=== PATIENT | male | born 1990 | race Hispanic/Latino ===

== ENCOUNTER 2018-08-17 16:51 | Observation (INO) | payer SELFPAY ==
[2018-08-17] MEDS ORDERED: ONDANSETRON 4 MG/2 ML VIAL IV PRN (19:46)
[2018-08-17] MEDS ORDERED: ATORVASTATIN 20 MG TAB PO SCH (21:00)
--- NOTE | 2018-08-17 21:00 | RAD REPORT ---
EXAM DESCRIPTION: RAD - Chest Pa And Lat (2 Views) - 08/17/2018 8:55 pm CLINICAL HISTORY: Stroke Chest pain. COMPARISON: No comparisons FINDINGS: The lungs are clear. The heart is normal in size. No displaced fractures. IMPRESSION: No acute or concerning finding suspected.
[2018-08-17] MEDS: NA CHLORIDE 0.9% 1,000 ML IV SCH (22:41)
[2018-08-17] MEDS: ACETAMINOPHEN 500 MG TAB PO PRN (22:41)
[2018-08-17] MEDS: ENOXAPARIN 40 MG/0.4 ML SQ SCH (22:41)
[2018-08-18] MEDS: ACETAMINOPHEN 500 MG TAB PO PRN (05:32)
[2018-08-18 05:50] VITALS: BMI 30.1
[2018-08-18 05:56] LABS: Absolute Lymphocytes (CBC) 1.8 K/uL (0.7-4.9); Absolute Monocytes 0.6 K/uL (0.1-1.3); Basophils % 0.5 % (0-1.3); Eosinophils % 1.4 % (0-4.4); Hematocrit 46.3 % (39.6-49.0); Lymphocytes % 33.2 % (15.3-44.8); MCH 31.3 pg (27.0-35.0); MCV 90.2 fL (80-100); MPV 7.6 fL (7.6-11.3); Monocytes % 10.3 % (3.3-12.3); RBC Red Blood Cell Count 5.13 M/uL (4.33-5.43)
[2018-08-18 06:13] LABS: Albumin 3.8 g/dL (3.4-5.0); Bilirubin Total 0.9 mg/dL (0.2-1.0); Magnesium 2.2 mg/dL (1.8-2.4); Phosphorus 3.3 mg/dL (2.5-4.9); Potassium 3.9 mmol/L (3.5-5.1); Protein, Total 7.3 g/dL (6.4-8.2)
[2018-08-18] MEDS ORDERED: INFLUENZA VACCINE (for 3y+) 0.5 ML DOSE IMVAC ONE (08:00)
[2018-08-18] MEDS: ENOXAPARIN 40 MG/0.4 ML SQ SCH (09:00)
[2018-08-18] MEDS ORDERED: CLOPIDOGREL 75 MG TABLET PO SCH (09:00)
[2018-08-18] MEDS ORDERED: ASPIRIN EC 81 MG TAB PO SCH (09:00)
[2018-08-18] MEDS ORDERED: POTASSIUM CL SA 10 MEQ TAB PO ONE (09:00)
[2018-08-18] MEDS: NA CHLORIDE 0.9% 1,000 ML IV SCH (09:20)
--- NOTE | 2018-08-18 10:39 | RAD REPORT ---
EXAM DESCRIPTION: MRI - MRA Head Wo Cont - 08/18/2018 9:07 am COMPARISON: None. TECHNIQUE: Axial and coronal 3D [id number] image acquisition was performed. 3D rotational images were generated with source and reconstruction images reviewed. Horizontal and vertical axis rotation al views generated using MIP protocol. FINDINGS: The distal vertebral arteries and basilar artery show no suspicious findings. Moderate to moderately advanced atherosclerotic changes involve each posterior cerebral artery distribution. From skullbase to the termination, the internal carotid artery show no significant stenosis. There is some atherosclerotic changes evident in the distal cavernous and supraclinoid portions of each inter nal carotid artery. This does not appear to cause a significant degree of luminal narrowing. Moderate atherosclerotic change involves each A1 segment of the anterior cerebral arteries with more mild atherosclerotic change in each distal anterior cerebral artery. Moderate severity atheroscleroti c changes are present in each middle cerebral artery distribution most notable at the M1 -M2 junction . No aneurysm or vascular malformation. IMPRESSION: Moderate to moderately advanced atherosclerotic change in the intracranial circulation a s detailed. The distal vertebral, basilar and distal internal carotid arteries are without significant disease.
--- NOTE | 2018-08-18 10:41 | RAD REPORT ---
EXAM DESCRIPTION: MRI - Brain W/Wo Cont - 08/18/2018 9:08 am CLINICAL HISTORY: CVA/the headache/right facial numbness COMPARISON: None TECHNIQUE: Axial, sagittal, and coronal magnetic images of the brain were obtained. 20 cc of MultiHa nce administered intravenously. The patient became nauseous after the administration of the contrast. FINDINGS: No abnormal signal is present within the brain. Diffusion-weighted/ADC mapping does not reveal evidence of acute infarction. The ventricles are normal caliber. No abnormal enhancement within the brain is seen. An extra-axial fluid collection is not noted. The sinuses and mastoids are clear. IMPRESSION: Unremarkable brain MRI
--- NOTE | 2018-08-18 10:50 | P.HP ---
Certification for Inpatient Patient admitted to: Observation With expected LOS: <2 Midnights Patient will require the following post-hospital care: None Practitioner: I am a practitioner with admitting privileges, knowledge of patient current condition, hospital course, and medical plan of care. Services: Services provided to patient in accordance with Admission requirements found in Title 42 Section 412.3 of the Code of Federal Regulations Patient History Date of Service: 08/17/18 Reason for admission: Numbness on the right side of the body History of Present Illness: Patient is a 27-year-old gentleman who was seen at [place] emergency room with numbness on the right side of his body. Patient's blood pressure was elevated at that time as well. Patient was transferred to our hospital for further evaluation. When patient arrived to our facility he only had numbness on the right side of his face. His symptoms have pretty much resolved except for the numbness on the right side of his face. He will be admitted to the hospital for further workup including an MRI of the brain. Allergies No Known Allergies Allergy (Verified 08/18/18 02:13) Home Medications: NK [No Home Meds] 08/18/18 - Past Medical/Surgical History Has patient received pneumonia vaccine in the past: No Diabetic: No Past Medical History: Patient denies medical history Past Surgical History: Patient denies surgical history - Family History Father Family History: Reviewed- Non-Contributory - Social History Smoking Status: Never smoker Alcohol use: No CD- Drugs: No Caffeine use: No Place of Residence: Home Review of Systems 10-point ROS is otherwise unremarkable Physical Examination - Vital Signs Temperature: 97.3 F Blood Pressure: 117/61 Pulse: 53 Respirations: 16 Pulse Ox (%): 97 - Physical Exam General: Alert, In no apparent distress, Oriented x3 HEENT: Atraumatic, PERRLA, Mucous membr. moist/pink, EOMI, Sclerae nonicteric Neck: Supple, 2+ carotid pulse no bruit, No LAD, Without JVD or thyroid abnormality Respiratory: Clear to auscultation bilaterally, Normal air movement Cardiovascular: Regular rate/rhythm, Normal S1 S2 Gastrointestinal: Normal bowel sounds, Soft and benign, Non-distended, No tenderness Musculoskeletal: No clubbing, No swelling, No tenderness Integumentary: No rashes Neurological: Normal gait, Normal speech, Normal strength at 5/5 x4 extr, Normal tone, Sensation intact, Cranial nerves 3-12 intact, Normal affect Lymphatics: No axilla or inguinal lymphadenopathy - Studies Laboratory Data (last 24 hrs) 08/18/18 : Sodium Cancelled, Potassium Cancelled, BUN Cancelled, Creatinine Cancelled, Glucose Cancelled 08/18/18 05:30: Sodium 142, Potassium 3.9, BUN 11, Creatinine 1.20, Glucose 91, Phosphorus 3.3, Magnesium 2.2, Total Bilirubin 0.9, AST 16, ALT 31, Alkaline Phosphatase 105, Triglycerides 155 H, Cholesterol 161, HDL Cholesterol 39 L, Cholesterol/HDL Ratio 4.13 08/18/18 05:30: WBC 5.5, Hgb 16.1, Hct 46.3, Plt Count 266 Assessment & Plan - Problems (Diagnosis) (1) Headache Onset Date: 08/18/18 Current Visit: Yes Status: Acute (2) Right facial numbness Onset Date: 08/18/18 Current Visit: Yes Status: Acute - Plan 1. MRI of the brain 2. Echocardiogram and carotid Doppler 3. Anti-platelet therapy and statin therapy 4. Neurology consultation 5. Physical therapy/occupational therapy/speech therapy evaluation 6. DVT prophylaxis - Advance Directives Does patient have a Living Will: No Does patient have a Durable POA for Healthcare: No
--- NOTE | 2018-08-18 11:02 | RAD REPORT ---
EXAM DESCRIPTION: MRI - MRA Neck W/Wo Cont - 08/18/2018 9:08 am CLINICAL HISTORY: Right facial numbness COMPARISON: None. TECHNIQUE: Magnetic resonance angiogram of the neck was performed. 20 cc MultiHance was administered intravenously. 3D MIPS reconstruction performed FINDINGS: The common carotid, internal carotid and external carotid arteries do not demonstrate a si gnificant stenosis. An aneurysm is not seen. The vertebral arteries are codominant without visualization of an abnormality. IMPRESSION: Unremarkable MRA neck
--- NOTE | 2018-08-18 12:26 | EKG ---
Test Date: 2018-08-18 Test Time: 08:45:50 Ophthalmic Medical Technologist: TALA MEASUREMENT RESULTS: Intervals: Rate: 56 [place]: 168 QRSD: 86 QT: 394 QTc: 380 [place]: P: 40 [place]: 168 QRS: 66 T: 39 INTERPRETIVE STATEMENTS: Sinus bradycardia Otherwise normal ECG No previous ECG available for comparison Electronically Signed On 08-18-18 12:25:31 CDT by Dread Campbell
--- NOTE | 2018-08-18 13:38 | ECHO ---
HEIGHT: 5 ft 10 in WEIGHT: 210 lb 0 oz DATE OF STUDY: 08/18/[address]: Herman Estrada MD 2-DIMENSIONAL: YES M.MODE: YES DOPPLER: YES COLOR FLOW: YES TDS: NO PORTABLE: NO DEFINITY: NO BUBBLE STUDY: NO DIAGNOSIS: DIZZINESS CARDIAC HISTORY: CATHERIZATION: NO SURGERY: NO PROSTHETIC VALVE: NO PACEMAKER: NO MEASUREMENTS (cm) DIASTOLIC (NORMALS) SYSTOLIC (NORMALS) IVSd 1.0 (0.6-1.2) LA Diam 3.9 (1.9-4.0) LVEF 61% LVIDd 5.0 (3.5-5.7) LVIDs 3.3 (2.0-3.5) %FS 33% LVPWd 0.9 (0.6-1.2) Ao Diam 2.7 (2.0-3.7) 2 DIMENSIONAL ASSESSMENT: RIGHT ATRIUM: NORMAL LEFT ATRIUM: NORMAL RIGHT VENTRICLE: NORMAL LEFT VENTRICLE: NORMAL TRICUSPID VALVE: NORMAL MITRAL VALVE: NORMAL PULMONIC VALVE: NORMAL AORTIC VALVE: NORMAL PERICARDIAL EFFUSION: NONE AORTIC ROOT: NORMAL LEFT VENTRICULAR WALL MOTION: NORMAL. DOPPLER/COLOR FLOW: NORMAL. COMMENTS: NORMAL 2D ECHO WITH DOPPLER. TECHNOLOGIST: IVAN HEATON
[2018-08-18 18:06] VITALS: BP 119/60; TEMP 98.7
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
== END 2018-08-18 19:15 | disposition home or self-care (01) ==
LOC: 4TH 18:45
PROVIDERS: ADMIT Family Medicine; ATTEND Hospitalist
DX: R51 Headache (principal); R20.0 Anesthesia of skin
CPT/HCPCS: 36415; 70544; 70549; 70553; 71046; 80053; 80061; 83735; 84100; 85025; 93005; 93306; A9577; G0378; J1650; J7030

== ENCOUNTER 2018-08-19 18:34 | Emergency (ER) | payer SELFPAY ==
--- OUTSIDE RECORDS SUMMARY | 2018-08-19 18:41 | XMS REPORT | Continuity of Care Document ---
:1990 Author Organization Interface Problems Problem Status Onset Classification Date Comments Source Date Reported Left facial 05/05/20 05/08/2018 [facility] 18 [facility] Acute headache 05/05/20 05/08/2018 [facility] Acute tension 04/14/20 04/17/2018 [facility] headache 18 [facility] Chest pain, 04/14/20 04/17/2018 [facility] atypical 18 [facility] Chest pain, 01/29/20 04/30/2018 [facility] unspecified 18 [facility] Paresthesia 01/23/20 04/30/2018 [facility] 18 [facility] Nonspecific 01/23/20 04/30/2018 [facility] chest pain 18 [facility] Discharge 05/05/20 05/08/2017 [facility] Diagnosis: 17 Dizziness HYPERTENSION Active 05/05/20 [facility] 17 Discharge 06/25/20 06/28/2016 [facility] Diagnosis: 16 Atypical chest pain CHEST PAIN Active 06/25/20 [facility] 16 Discharge 04/27/20 04/30/2016 [facility] Diagnosis: 16 Myalgia Discharge 04/27/20 04/30/2016 [facility] Diagnosis: Other 16 chest pain CHEST PAIN ON Active 04/26/20 [facility] LEFT 16 LEFT RIB PAIN Active 04/22/20 [facility] 16 Paresthesia of 04/30/2018 [facility] skin [facility] snf use of 04/30/2018 [facility] aspirin [facility] Medications Medication Details Route Status Patient Ordering Order Source Instructions Provider Date BD Normal Saline 25 mL, Route: Inactive 05/05/ [facility] Flush IV, Drug Form: 2017 Hospital INJ, PRN, PRN Line Flush, Start date: 05/05/18 2:18:00 CDT, Duration: 30 day, Stop date: 06/04/18 2:17:00 CDTNotes: (Same as: BD Posiflush) BD Normal Saline 10 mL, Route: Inactive 05/05/ [facility] Flush IV, Drug Form: 2017 [facility] INJ, PRN, PRN Line Flush, Start date: 05/05/18 2:17:00 CDT, Duration: 30 day, Stop date: 06/04/18 2:16:00 CDTNotes: (Same as: BD Posiflush) Ketorolac 30 mg, 1 mL, Inactive [facility] Route: IM, Drug 2018 Hospital form: INJ, ONCE, Dosing Weight 108.182, kg, Priority: STAT, Start date: 05/05/18 2:15:00 CDT, Stop date: 05/05/18 2:15:00 CDTNotes: (Same as:Toradol) IV bolus must be given >15 seconds. Give IM administration slowly and deeply into the muscle. Not for use > 4 days MEDICATION WASTE Product Size: 30 mg Product Wasted: ___ mg Acetaminophen 300 1 cap, PO, Q4H, No Longer [facility] MG / butalbital PRN PRN Active [address] [place] [address] 50 MG / Caffeine Headache, Do 40 MG Oral not exceed 6 Capsule capsules in 24 [Fioricet] hours, # 20 cap, 0 Refill(s) Reglan 10 mg, 1 tab, Inactive [facility] Route: PO, Drug 2018 Hospital form: TAB, ONCE, Dosing Weight 104.545, kg, Priority: STAT, Start date: 04/14/18 21:06:00 CDT, Stop date: 04/14/18 21:06:00 CDTNotes: (Same as: Reglan) Take 30 min before meals Acetaminophen 650 mg, 2 tab, Inactive [facility] Route: PO, Drug 2018 Hospital form: TAB, ONCE, Dosing Weight 104.545, kg, Priority: STAT, Start date: 04/14/18 21:06:00 CDT, Stop date: 04/14/18 21:06:00 CDTNotes: Do not exceed 4 gm/day. (Same as: Tylenol) Sodium Chloride 1,000 mL, 1000 Inactive [facility] 0.9% (Bolus) IV ml/hr, Infuse [address] [place] [address] Over: 1 hr, Route: IV, 1,000, Drug form: INJ, ONCE, Priority: STAT, Dosing Weight 104.545 kg, Start date: 04/14/18 19:24:00 CDT, Stop date: 04/14/18 19:24:00 CDT Omeprazole 20 mg, Route: No Longer [facility] PO, Drug form: Active 2018 [facility] ECCAP, Before Breakfast, Dosing Weight 112.443, kg, Start date: 03/22/18 7:30:00 CDT, Duration: 30 day, Stop date: 04/20/18 7:30:00 CDT Protonix 40 mg, 1 tab, No Longer [facility] Route: PO, Drug Active 2018 [facility] form: ECTAB, Before Breakfast, Start date: 03/22/18 7:30:00 CDT, Duration: 30 day, Stop date: 04/20/18 7:30:00 CDTNotes: (Same as: Protonix) Omeprazole 40 MG 40 mg=1 cap, Active [facility] Enteric Coated PO, Daily, # 30 2018 [facility] Capsule cap, 0 [Prilosec] Refill(s), Pharmacy: [facility] [id number] Pepcid 20 mg, Route: Inactive [facility] IVP, Q12H, 2018 [facility] Dosing Weight 113.636, kg, Start date: 03/21/18 9:00:00 CDT, Duration: 30 day, Stop date: 04/19/18 21:00:00 CDT Saline Flush 0.9% 10 ml, Route: Inactive [facility] IVP, Drug Form: 2018 [facility] INJ, Dosing Weight 113.636, kg, Q12H, Start date: 03/21/18 9:00:00 CDT, Duration: 30 day, Stop date: 04/19/18 21:00:00 CDTNotes: (Same as: BD Posiflush) Aspirin 325 MG 325 mg, 1 tab, Inactive [facility] Enteric Coated Route: PO, Drug 2018 [facility] Tablet form: ECTAB, Daily, Dosing Weight 113.636, kg, Start date: 03/21/18 9:00:00 CDT, Duration: 30 day, Stop date: 04/19/18 9:00:00 CDTNotes: (Do Not Crush) Do not crush or chew. famotidine 20 mg, 1 tab, Inactive CLAYTON Aleman Route: PO, Drug 2018 Hospital form: TAB, Q12H, Start date: 03/21/18 9:00:00 CDT, Duration: 30 day, Stop date: 04/19/18 21:00:00 CDTNotes: (Same as: Pepcid) BD Normal Saline 25 mL, Route: Inactive [facility] Flush IV, Drug Form: 2018 Hospital INJ, PRN, PRN Line Flush, Start date: 03/21/18 8:00:00 CDT, Duration: 30 day, Stop date: 04/20/18 7:59:00 CDTNotes: (Same as: BD Posiflush) normal saline 1,000 mL, Rate: No Longer [facility] 0.9% IV 1,000 mL 125 ml/hr, Active 2018 Hospital Infuse over: 8 hr, Route: IV, Dosing Weight 113.636 kg, Total Volume: 1,000, Start date: 03/20/18 22:22:00 CDT, Duration: 30 day, Stop date: 04/19/18 22:21:00 CDT, 2.37, m2 Ativan 1 mg, 0.5 mL, No Longer [facility] Route: IV, Drug Active 2018 Hospital form: INJ, Q2H, Dosing Weight 113.636, kg, PRN as needed for anxiety, Start date: 03/20/18 22:21:00 CDT, Duration: 30 day, Stop date: 04/19/18 22:20:00 CDTNotes: (Same as: Ativan) Saline Flush 0.9% 10 ml, Route: No Longer [facility] IVP, Drug Form: Active 2018 Hospital INJ, Dosing Weight 113.636, kg, PRN, PRN Line Flush, Start date: 03/20/18 22:20:00 CDT, Duration: 30 day, Stop date: 04/19/18 22:19:00 CDTNotes: (Same as: BD Posiflush) Ondansetron 4 mg, 1 tab, No Longer CLAYTON Aleman Route: PO, Drug Active 2018 Hospital form: TABDIS, Q8H, Dosing Weight 113.636, kg, PRN Nausea & Vomiting, Start date: 03/20/18 22:20:00 CDT, Duration: 30 day, Stop date: 04/19/18 22:19:00 CDTNotes: (Same as: Gene ODT) Nitroglycerin 0.4 mg, 1 tab, No Longer [facility] Route: SL, Drug Active [facility] Hospital form: TAB, Q5Min, Dosing Weight 113.636, kg, PRN Chest Pain, Start date: 03/20/18 22:20:00 CDT, Duration: 3 doses or times, Stop date: Limited # of timesNotes: (Same as:Nitroquick, Nitrostat) "Do Not Crush" Sublingual tablet Aspirin 325 mg, Route: Inactive [facility] PO, Drug form: [facility] Hospital TAB, ONCE, Dosing Weight 113.636, kg, Priority: STAT, Start date: 03/20/18 22:10:00 CDT, Stop date: 03/20/18 22:10:00 CDT Ativan 1 mg, Route: Inactive [facility] IVP, Drug form: [address] [place] [address] INJ, ONCE, Dosing Weight 113.636, kg, Priority: STAT, Start date: 03/20/18 22:10:00 CDT, Stop date: 03/20/18 22:10:00 CDT Ativan 1 mg, 1 tab, Inactive [facility] Route: PO, Drug [facility] Hospital form: TAB, ONCE, Dosing Weight 113.636, kg, Start date: 03/20/18 20:50:00 CDT, Stop date: 03/20/18 20:50:00 CDTNotes: (Same as: Ativan) Sodium Chloride 1,000 mL, 1000 Inactive [facility] 0.9% (Bolus) IV ml/hr, Infuse [facility] Over: 1 hr, Route: IV, 1,000, Drug form: INJ, ONCE, Priority: STAT, Dosing Weight 113.636 kg, Start date: 03/20/18 20:50:00 CDT, Stop date: 03/20/18 20:50:00 CDT Sodium Chloride 1,000 mL, 1000 Inactive [facility] 0.9% (Bolus) IV ml/hr, Infuse [facility] Hospital Over: 1 hr, Route: IV, 1,000, Drug form: INJ, ONCE, Priority: STAT, Dosing Weight 148.636 kg, Start date: 03/20/18 19:13:00 CDT, Stop date: 03/20/18 19:13:00 CDT Saline Flush 0.9% 10 mL, Route: Inactive [facility] IVP, Drug Form: [address] [place] [address] INJ, Dosing Weight 148.636, kg, PRN, PRN Line Flush, Start date: 01/22/18 1:15:00 CDT, Duration: 30 day, Stop date: 02/21/18 1:14:00 CDTNotes: (Same as: BD Posiflush) Aspirin 324 mg, Route: Inactive [facility] PO, ONCE, [address] [place] [address] Dosing Weight 148.636, kg, Priority: STAT, Start date: 01/22/18 1:15:00 CDT, Stop date: 01/22/18 1:15:00 CDT Saline Flush 0.9% 10 mL, Route: No Longer IVP, Drug Form: Active 2016 [facility] INJ, Dosing Weight 100.909, kg, PRN, PRN Line Flush, Start date: 05/05/17 20:21:00 CDT, Duration: 30 day, Stop date: 06/04/17 20:20:00 CDTNotes: (Same as: BD Posiflush) ibuprofen 600 mg 600 mg=1 tab, Active oral tablet PO, Q8H, # 30 2015 [facility] tab, 0 Refill(s) Cyclobenzaprine 10 mg, PO, TID, Active hydrochloride 10 PRN Muscle 2015 [facility] Oral Tablet Spasm, X 7 day, [Flexeril] # 21 tab, 0 Refill(s) tramadol 100 mg=2 tab, Active hydrochloride 50 PO, Q6H, PRN 2015 [facility] Oral Tablet pain, X 5 day, [Ultram] # 30 tab, 0 Refill(s) Dexamethasone 10 mg, Route: Inactive 04/27[facility] IM, ONCE, 2015 [facility] Dosing Weight 100, kg, Priority: STAT, Start date: 04/27/16 9:19:00 CDT, Stop date: 04/27/16 9:19:00 CDT Flexeril 10 mg, 1 tab, Inactive Route: PO, Drug 2015 [facility] form: TAB, ONCE, Dosing Weight 100, kg, Priority: STAT, Start date: 04/27/16 8:56:00 CDT, Stop date: 04/27/16 8:56:00 CDTNotes: (Same As: Flexeril) tramadol 100 mg, 2 tab, Inactive hydrochloride 50 Route: PO, Drug 2015 [facility] MG Oral Tablet form: TAB, [Ultram] ONCE, Dosing Weight 100, kg, Priority: STAT, Start date: 04/27/16 8:56:00 CDT, Stop date: 04/27/16 8:56:00 CDTNotes: Not to exceed 400mg/day. (Same As: Ultram) Ketorolac 60 mg, 2 mL, Inactive Route: IM, Drug 2015 [facility] form: INJ, ONCE, Dosing Weight 100, kg, Priority: STAT, Start date: 04/27/16 8:56:00 CDT, Stop date: 04/27/16 8:56:00 CDTNotes: (Same as:Toradol) IV bolus must be given >15 seconds. Give IM administration slowly and deeply into the muscle. Not for use > 4 days MEDICATION WASTE Product Size: 60 mg Product Wasted: ___ mg Dexamethasone 10 mg, 1 mL, Inactive Route: IM, Drug 2015 [facility] form: INJ, ONCE, Dosing Weight 100, kg, Priority: STAT, Start date: 04/27/16 8:56:00 CDT, Stop date: 04/27/16 8:56:00 CDTNotes: MEDICATION WASTE Product Size: 10 mg Product Wasted: ___ mg naproxen 500 mg 500 mg=1 tab, Active oral tablet PO, BID, PRN 2016 [facility] Pain, # 30 tab, 0 Refill(s) Ketorolac 60 mg, 2 mL, Inactive Route: IM, Drug 2015 [facility] form: INJ, ONCE, Dosing Weight 101.818, kg, Priority: STAT, Start date: 04/22/16 17:24:00 CDT, Stop date: 04/22/16 17:24:00 CDTNotes: (Same as:Toradol) IV bolus must be given >15 seconds. Give IM administration slowly and deeply into the muscle. Not for use > 4 days MEDICATION WASTE Product Size: 60 mg Product Wasted: ___ mg Allergies, Adverse Reactions, Alerts Substance Category Reaction Severity Reaction Status Date Comments Source type Reported Immunizations Immunization Date Given Site Status Last Updated Comments Source Results Order Name Results Value Reference Date Interpretation Comments Source Range Brain wo Brain wo Clinical Indication: - DIZZINESS. 06/14 - [facility] contrast contrast CT /2017 - Hospital CT Comparison: 05/23/2018. Read by: Alli Gray MD Dictated Date/time: 06/14/18 18:32 Electronically Signed by: Alli Gray MD 06/14/18 18:34 FINAL REPORT TECHNIQUE: CT images were obtained from the foramen magnum to the vertex without the use of intravenous contrast on a multidetector CT. CT imaging was performed with exposure control parameters to reduc e radiation dose. Coronal and sagittal reconstructions were obtained. CT radiation dose DLP: 1284 mGy-cm FINDINGS: There is no specific evidence of intracranial hemorrhage, acute infarction or intracranial mass lesion. The ventricles are within normal limits in size and configuration without evidence of hydrocephalus. The visualized paranasal sinuses and mastoid air cells are clear. The bones and extracranial soft tissues are unremarkable. If there is further concern for intracranial pathology or acute stroke, MRI of the brain may be performed for complete assessment. IMPRESSION: No specific evidence of intracranial hemorrhage, acute infarction, intracranial mass lesion or hydrocephalus. SL: FELICIANO Brain wo Brain wo Patient Name: KAIT RAMOS 05/23 - [facility] contrast contrast CT /2017 - Hospital CT : 1990; Age: 27 years y/o Male MR: [id number] Read by: Jona Millan MD Dictated Date/time: 05/23/18 22:25 Electronically Signed by: Jona Millan MD 05/23/18 22:30 FINAL REPORT Study: Brain wo contrast CT 05/23/2018 9:38 PM CDT Clinical Indication: Vertigo - Severe headache and dizziness; Comparison: 05/05/2018 TECHNIQUE: CT images were obtained from the foramen magnum to the vertex without the use of intravenous contrast on a multidetector CT. Coronal and sagittal reconstructions were obtained. DLP: 1298 mGy-cm. FINDINGS: BRAIN PARENCHYMA: There are normal rojo-white interfaces. No evidence for subarachnoid, intraparenchymal or intraventricular hemorrhage. No significant extra-axial fluid collection, mass effect or shif t. No evidence for an acute infarction. No mass lesions identified about the brain. VENTRICLES: Ventricles and sulci are within normal limits for the patient' s age. ORBITS, MASTOIDS AND PARANASAL SINUSES: The visualized orbits and paranasal sinuses are unremarkable. The mastoid air cells are clear. SKULL: There are no osseous abnormalities. If there is further concern for intracranial pathology or acute stroke, MRI of the brain may be performed for complete assessment. IMPRESSION: Unremarkable noncontrast head CT. SL: TRINIDAD-PC Chest Chest 1view Clinical Indication: Dizziness -near syncope workup; [facility] 1view DX DX /2018 - Hospital Comparison: 03/20/2018 Read by: Alfreda Coyne MD Dictated Date/time: 05/23/18 22:12 Electronically Signed by: Alfreda Coyne MD 05/23/18 22:13 FINAL REPORT Technique: X-ray chest frontal projection FINDINGS: There is no consolidation, pleural effusion or pneumothorax. The heart is normal in size. The mediastinum and selina are unremarkable. The visualized bones and soft tissues are within normal limits. IMPRESSION: No chest radiographic evidence of acute cardiopulmonary disease. SL: TOÑA Brain wo Brain wo I have reviewed this examination and concur with the interpretation. 05/[address] /2018 - Hospital CT Clinical Indication: Headache, bilateral hand numbness Comparison: None Read by: Regino Newman MD Dictated Date/time: 05/05/18 02:04 Electronically Signed by: Regino Newman MD 05/05/18 02:04 FINAL REPORT TECHNIQUE: CT images were obtained from the foramen magnum to the vertex without the use of intravenous contrast on a multidetector CT. Coronal and sagittal reconstructions were obtained. - - CT radiation dose DLP: 1247 mGy-cm Read by: Xiomy Boateng MD Dictated Date/time: 05/05/18 02:02 FINDINGS: Electronically Signed by: Xiomy Boateng MD 05/05/18 02:03 FINAL REPORT BRAIN PARENCHYMA: Normal rojo-white interfaces, sulci and gyri. No focal mass lesions on this noncontrast head CT. No mass effect, midline shift or edema. No intra- axial or extra-axial fluid collections, intraventricular or intraparenchymal hemorrhage. Pineal, brainstem, cerebellum and skull base regions appear unremarkable. No abnormal findings in the sella. VENTRICLES: Lateral ventricles, third and fourth ventricles appear unremarkable. Basilar cisterns are normal. ORBITS, MASTOIDS AND PARANASAL SINUSES: -Visualized orbits/retro-orbital spaces are within normal limits. - The paranasal sinuses are unremarkable. The mastoid air cells are clear. SKULL: No acute osseous abnormalities. No focal or asymmetric scalp swelling. If there is further concern for intracranial pathology or acute stroke, MRI of the brain may be performed for complete assessment. IMPRESSION: 1. No acute intracranial abnormality. No mass, hemorrhage, or subacute stroke. SL: [id number] URINE AND UA <=1.0 0.1 - 1.0 04/15 [facility] STOOL Urobilinogen mg/dL /2017 [facility] URINE AND UA Turbidity Clear Clear 04/15 [facility] /2017 [facility] (04/14/18 8:38 PM) URINE AND UA Color Light Yellow Yellow 04/15 [facility] *NA* (04/14/18 8:38 PM) URINE AND UA pH 5.0 5.0 - 8.0 04/15 [facility] [address] [place] [address] URINE AND UA Glucose Negative Negative 04/15 [facility] STOOL mg/dL mg/dL /2017 [facility] URINE AND UA Ketones Negative Negative 04/15 [facility] STOOL mg/dL mg/dL /[address] [place] [address] URINE AND UA Protein Negative Negative 04/15 [facility] STOOL mg/dL mg/dL /2017 [facility] URINE AND UA Spec Grav 1.017 <=1.030 04/15 [facility] [address] [place] [address] URINE AND UA Blood Negative Negative 04/15 [facility] /[address] [place] [address] (04/14/18 8:38 PM) URINE AND UA Bili Negative Negative 04/15 [facility] /[address] [place] [address] *NA* (04/14/18 8:38 PM) URINE AND UA Nitrite Negative Negative 04/15 [facility] /2017 [facility] (04/14/18 8:38 PM) URINE AND UA Mucus Few /LPF None Seen 04/15 [facility] STOOL /LPF /2017 Hospital URINE AND UA Leuk Est Negative Negative 04/15 [facility] STOOL [facility] (04/14/18 8:38 PM) URINE AND UA WBC 1 /HPF 0 - 5 04/15 [facility] STOOL [facility] URINE AND UA Sq Epi None Seen 04/15 [facility] STOOL [facility] CHEM PANEL Procalcitoni <0.05 0.00 - 04/15 [facility] n Lvl ng/mL 0.10 [facility] CHEM PANEL Lactic Acid 1.1 mMol/L 0.5 - 2.2 04/15 [facility] Lvl /2017 [facility] CARDIAC Troponin-I null 0.00 - 04/15 [facility] ENZYMES 0.40 [facility] CARDIAC CK MB null 0.5 - 3.6 04/15 [facility] ENZYMES [facility] CARDIAC Total CK 132 unit/L 12 - 191 04/15 [facility] ENZYMES [facility] CARDIAC CK MB Index null 0.0 - 2.5 04/15 [facility] ENZYMES [facility] CHEM PANEL eGFR 80 04/15 Result Comment: The eGFR is calculated using the CKD-EPI formula. In most young, healthy individuals the eGFR will be >90 mL/ min/1.73m2. The eGFR declines with age. An eGFR of 60-89 may be normal in mL/min/1.7 some populations, particularly the elderly, for whom the CKD-EPI formula has not been extensively validated. Use of the eGFR is not recommended in the following populations: Hospital 3m2 Individuals with unstable creatinine concentrations, including patients and those with serious co-morbid conditions. Patients with extremes in muscle mass or diet. The data above are obtained from the National Kidney Disease Education Program (NKDEP) which additionally recommends that when the eGFR is used in patients with extremes of body mass index for purposes of drug dosing, the eGFR should be multiplied by the estimated BMI. CHEM PANEL A/G Ratio 0.9 0.7 - 1.6 04/15 Hospital CHEM PANEL Globulin 4.2 g/dL 2.7 - 4.2 04/15 [facility] CHEM PANEL AGAP 12.6 meq/L 10.0 - 04/15 [facility] 20.0 [facility] CHEM PANEL B/C Ratio 11 6 - 25 04/15 Hospital CHEM PANEL Total 8.1 g/dL 6.4 - 8.4 06 Hospital CHEM PANEL Chloride Lvl 107 meq/L 95 - 109 04/15 Hospital CHEM PANEL Potassium 4.6 meq/L 3.5 - 5.1 04/15 [facility] L[facility] CHEM PANEL Alk Phos 110 unit/L 39 - 136 06 Hospital CHEM PANEL Bili Total 0.6 mg/dL 0.2 - 1.3 04/15 Hospital CHEM PANEL AST 34 unit/L 0 - 37 06 Hospital CHEM PANEL ALT 44 unit/L 0 - 65 04/15 Hospital CHEM PANEL Albumin Lvl 3.9 g/dL 3.5 - 5.0 04/15 Hospital CHEM PANEL Calcium Lvl 8.9 mg/dL 8.5 - 10.5 04/15 Hospital CHEM PANEL CO2 24 meq/L 24 - 32 04/15 Hospital CHEM PANEL Sodium Lvl 139 meq/L 135 - 145 06 Hospital CHEM PANEL Creatinine 1.22 mg/dL 0.50 - 04/15 [facility] Lvl 1.40 [facility] CHEM PANEL BUN 14 mg/dL 7 - 22 04/15 Hospital CHEM PANEL Glucose Lvl 98 mg/dL 70 - 99 04/15 Hospital CHEM PANEL Lipase Lvl 118 unit/L 73 - 393 04/15 Hospital HEMATOLOGY MPV 7.5 fL 7.4 - 10.4 04/15 Hospital HEMATOLOGY Hgb 15.9 g/dL 14.0 - 06 [facility] 18.0 [facility] HEMATOLOGY RDW 12.5 % 11.5 - 0608 [facility] 14.5 [facility] HEMATOLOGY Platelet 264 K/CMM 133 - 450 06 Hospital HEMATOLOGY MCH 30.8 pg 27.0 - 04/15 [facility] 31.0 [facility] HEMATOLOGY MCHC 35.4 g/dL 32.0 - 08 [facility] 36.0 [facility] HEMATOLOGY MCV 87.1 fL 80.0 - 04/15 [facility] 94.0 /2017 Hospital HEMATOLOGY Hct 45.0 % 42.0 - 04/15 [facility] 54.0 /2017 Hospital HEMATOLOGY RBC 5.17 M/CMM 4.70 - 04/15 [facility] 6.10 [facility] HEMATOLOGY WBC 7.6 K/CMM 3.7 - 10.4 / [facility] /2018 [facility] HEMATOLOGY Monocytes 8.4 % 2.0 - 12.0 /08 [facility] /2018 [facility] HEMATOLOGY Eosinophils 1.4 % 0.0 - 4.0 /08 [facility] /2018 [facility] HEMATOLOGY Lymphocytes 22.4 % 20.0 - 06/08 [facility] 40.0 /2017 [facility] HEMATOLOGY Basophils 0.7 % 0.0 - 1.0 / [facility] /2018 [facility] HEMATOLOGY Segs-Bands # 5.1 K/CMM 1.5 - 8.1 04/15 [facility] /2017 [facility] HEMATOLOGY Segs 67.1 % 45.0 - 04/15 [facility] 75.0 [facility] HEMATOLOGY Lymphocytes 1.7 K/CMM 1.0 - 5.5 /08 [facility] # /2018 [facility] HEMATOLOGY Monocytes # 0.6 K/CMM 0.0 - 0.8 /08 [facility] /2017 [facility] HEMATOLOGY Eosinophils 0.1 K/CMM 0.0 - 0.5 /08 [facility] # /2018 [facility] HEMATOLOGY Basophils # 0.1 K/CMM 0.0 - 0.2 /08 [facility] /2018 [facility] Chest Chest Procedure: CT Pulmonary Angiogram. 04/14 - [facility] Pulmonary Pulmonary /2017 - Hospital Embolism Embolism CTA CTA Clinical Indication: Chest pain with shortness of breath for 5 days. Read by: Yvon Gibbs MD Dictated Date/time: 04/14/18 20:49 Electronically Signed by: Yvon Gibbs MD 04/14/18 20:53 FINAL REPORT Comparison: Chest radiograph 03/20/2018. TECHNIQUE: Sequential trans-axial images were obtained thru the chest and upper abdomen after administration of 100 cc Omnipaque 300 iodinated contrast. Coronal and sagittal MIP reconstructions were obtained (CT pulmonary angiogram) . Total CT radiation dose: WKO=781 mGy-cm FINDINGS: LUNG PARENCHYMA AND PLEURA: There are no lung nodules. No focal consolidation or significant interstitial lung disease is observed and no pleural effusion is identified. AIRWAY: The central airway is normal. . MEDIASTINUM: No significant mediastinal lymphadenopathy. HEART: There is no evidence of RV strain. The cardiac chambers are otherwise unremarkable. There is no pericardial effusion. VASCULAR STRUCTURES: There are no segmental pulmonary emboli noted. The main, right and left pulmonary arteries are normal. The great vessels are unremarkable. The thoracic aorta is is free of aneurysm or dissection. The superior vena cava is unremarkable. VISUALIZED UPPER ABDOMEN: The visualized upper abdomen is within normal limits. OSSEOUS STRUCTURES: There are no definite significant osseous abnormalities seen. IMPRESSION: 1. No evidence of pulmonary emboli. SL:[id number] Abdomen AP Abdomen AP Abdomen one view: 03/21 - [facility] DX - Hospital HISTORY: Abdominal distention. Read by: Sea Juarez MD Dictated Date/time: 03/21/18 10:29 Electronically Signed by: Sea Juarez MD 03/21/18 10:29 FINAL REPORT FINDINGS: Bowel gas pattern is unremarkable. There is no bowel obstruction. Evaluation of soft tissues and bony structures unremarkable. IMPRESSION: Nonspecific abdomen SL: [id number] CARDIAC Troponin-I null 0.00 - 03/21 [facility] ENZYMES 0.40 [facility] LIPIDS Chol 154 mg/dL <=199 03/21 [facility] mg/dL /2017 Hospital LIPIDS VLDL 37 03/21 [facility] /2017 [facility] LIPIDS LDL 84 mg/dL <=99 mg/dL 03/21 [facility] (Calculated) Hospital LIPIDS HDL 33 mg/dL >=61 mg/dL 03/21 [facility] /2017 Hospital LIPIDS CHD Risk 4.67 4.00 - 03/21 [facility] 7.30 [facility] LIPIDS Trig 183 mg/dL <=149 03/21 [facility] mg/dL /2018 Hospital CARDIAC Troponin-I null 0.00 - 03/21 [facility] ENZYMES 0.40 [facility] CARDIAC BNP null <=100 03/21 [facility] ENZYMES pg/mL /2017 Hospital CARDIAC Troponin-I null 0.00 - 03/21 [facility] ENZYMES 0.40 2018 Hospital CARDIAC Total CK 88 unit/L 12 - 191 03/21 [facility] ENZYMES /2017 Hospital CARDIAC CK MB null 0.5 - 3.6 03/21 [facility] ENZYMES /2017 Hospital CARDIAC CK MB Index null 0.0 - 2.5 03/21 Hospital CHEM PANEL eGFR 90 03/21 Result Comment: The eGFR is calculated using the CKD-EPI formula. In most young, healthy individuals the eGFR will be >90 mL/ min/1.73m2. The eGFR declines with age. An eGFR of 60-89 may be normal in mL/min/1.7 some populations, particularly the elderly, for whom the CKD-EPI formula has not been extensively validated. Use of the eGFR is not recommended in the following populations: [address] Individuals with unstable creatinine concentrations, including patients and those with serious co-morbid conditions. Patients with extremes in muscle mass or diet. The data above are obtained from the National Kidney Disease Education Program (NKDEP) which additionally recommends that when the eGFR is used in patients with extremes of body mass index for purposes of drug dosing, the eGFR should be multiplied by the estimated BMI. CHEM PANEL A/G Ratio 1.0 0.7 - 1.6 03/21 [facility] CHEM PANEL Globulin 3.6 g/dL 2.7 - 4.2 03/21 [facility] CHEM PANEL B/C Ratio 11 6 - 25 03/21 [facility] CHEM PANEL AGAP 10.7 meq/L 10.0 - 03/21 20.0 Hospital CHEM PANEL Bili Total 0.3 mg/dL 0.2 - 1.3 03/21 [facility] CHEM PANEL Alk Phos 112 unit/L 39 - 136 03/21 [facility] CHEM PANEL Calcium Lvl 8.1 mg/dL 8.5 - 10.5 03/21 [facility] CHEM PANEL Total 7.3 g/dL 6.4 - 8.4 03/21 [facility] CHEM PANEL AST 20 unit/L 0 - 37 03/21 [facility] CHEM PANEL ALT 36 unit/L 0 - 65 03/21 [facility] CHEM PANEL Albumin Lvl 3.7 g/dL 3.5 - 5.0 03/21 [facility] CHEM PANEL Creatinine 1.10 mg/dL 0.50 - 03/21 [facility] 1[facility]40 [facility] CHEM PANEL Chloride Lvl 112 meq/L 95 - 109 03/21 [facility] CHEM PANEL Potassium 3.7 meq/L 3.5 - 5.1 03/21 [facility] CHEM PANEL Sodium Lvl 142 meq/L 135 - 145 03/21 [facility] CHEM PANEL CO2 23 meq/L 24 - 32 03/21 [facility] CHEM PANEL BUN 12 mg/dL 7 - 22 03/21 [facility] CHEM PANEL Glucose Lvl 95 mg/dL 70 - 99 03/21 [facility] CHEM PANEL Lipase Lvl 100 unit/L 73 - 393 03/21 [facility] DRUG U Cocaine Positive Negative 03/21 [facility] *ABN* (03/20/18 7:40 PM) DRUG U Benzodia Negative Negative 03/21 [facility] *NA* (03/20/18 7:40 PM) DRUG U Amph Scr Negative Negative 03/21 [facility] *NA* (03/20/18 7:40 PM) DRUG U Opiate Scr Negative Negative 03/21 [facility] *NA* (03/20/18 7:40 PM) DRUG U Cannab Scr Positive Negative 03/21 [facility] *ABN* (03/20/18 7:40 PM) DRUG U Flora Scr Negative Negative 03/21 [facility] *NA* (03/20/18 7:40 PM) DRUG U Phencyc Negative Negative 03/21 [facility]NA* (03/20/18 7:40 PM) DRUG UDS Note See Note 03/21 [facility] (03/20/18 7:40 PM) HEMATOLOGY D-Dimer null 03/21 [facility] HEMATOLOGY PTT 31.6 s 22.9 - 03/21 [facility] 35[facility]8 [facility] HEMATOLOGY WBC 6.1 K/CMM 3.7 - 10.4 03/21 [facility] HEMATOLOGY MCHC 33.9 g/dL 32.0 - 03/21 [facility] 36[facility]0 [facility] HEMATOLOGY RDW 12.9 % 11.5 - 03/21 [facility]. [facility] HEMATOLOGY MPV 7.2 fL 7.4 - 10.4 03/21 [facility] HEMATOLOGY Platelet 243 K/CMM 133 - 450 03/21 [facility] /2017 [facility] HEMATOLOGY Hgb 14.3 g/dL 14.0 - 03/21 [facility] 18.0 [facility] HEMATOLOGY RBC 4.78 M/CMM 4.70 - 03/21 [facility] 6.10 [facility] HEMATOLOGY MCH 30.0 pg 27.0 - 03/21 [facility] 31.0 [facility] HEMATOLOGY MCV 88.5 fL 80.0 - 03/21 [facility] 94.0 /2017 [facility] HEMATOLOGY Hct 42.3 % 42.0 - 03/21 [facility] 54.0 [facility] HEMATOLOGY INR 1.08 0.85 - 03/21 [facility] 1.17 [facility] HEMATOLOGY PT 14.0 s 12.0 - 03/21 [facility] 14.7 [facility] HEMATOLOGY Segs 57.9 % 45.0 - 03/21 [facility] 75.0 [facility] HEMATOLOGY Lymphocytes 31.3 % 20.0 - 03/21 [facility] 40.0 [facility] HEMATOLOGY Monocytes # 0.6 K/CMM 0.0 - 0.8 03/21 [facility] HEMATOLOGY Segs-Bands # 3.6 K/CMM 1.5 - 8.1 03/21 [facility] HEMATOLOGY Lymphocytes 1.9 K/CMM 1.0 - 5.5 03/21 [facility] # /2017 [facility] HEMATOLOGY Eosinophils 1.2 % 0.0 - 4.0 03/21 [facility] HEMATOLOGY Basophils 0.4 % 0.0 - 1.0 03/21 [facility] HEMATOLOGY Monocytes 9.2 % 2.0 - 12.0 03/21 [facility] HEMATOLOGY Eosinophils 0.1 K/CMM 0.0 - 0.5 03/21 [facility] # /2017 [facility] URINE AND UA Sq Epi None Seen 03/21 [facility] URINE AND UA <=1.0 0.1 - 1.0 03/21 [facility] Urobilinogen mg/dL /2017 Hospital URINE AND UA RBC null 0 - 2 03/21 [facility] /2017 [facility] URINE AND UA Mucus Few /LPF None Seen 03/21 [facility] /LPF /2017 [facility] URINE AND UA Bili Negative Negative 03/21 [facility] STO[facility] *NA* (03/20/18 7:40 PM) URINE AND UA Blood Negative Negative 03/21 [facility] /2017 [facility] (03/20/18 7:40 PM) URINE AND UA Nitrite Negative Negative 03/21 [facility] /2017 [facility] (03/20/18 7:40 PM) URINE AND UA Leuk Est Negative Negative 03/21 [facility] STOOL [facility] (03/20/18 7:40 PM) URINE AND UA WBC 1 /HPF 0 - 5 03/21 [facility] /2017 [facility] URINE AND UA Color Light Yellow Yellow 03/21 [facility] STOOL [facility] *NA* (03/20/18 7:40 PM) URINE AND UA Turbidity Clear Clear 03/21 [facility] (03/20/18 7:40 PM) URINE AND UA Glucose Negative Negative 03/21 [facility] mg/dL mg/dL [facility] URINE AND UA Ketones Trace Negative 03/21 [facility] STOOL mg/dL mg/dL [facility] URINE AND UA Spec Grav 1.020 <=1.030 03/21 [facility] STO[facility] URINE AND UA pH 5.0 5.0 - 8.0 03/21 [facility] URINE AND UA Protein Negative Negative 03/21 [facility] mg/dL mg/dL [facility] Chest 2 Chest 2 PROCEDURE: CHEST TWO VIEW 03/20 - [facility] views DX views - Hospital INDICATION: Chest pain Read by: Sea Juarez MD Dictated Date/time: 03/20/18 19:25 Electronically Signed by: Sea Juarez MD 03/20/18 19:26 FINAL REPORT COMPARISON: 05/05/2017 FINDINGS: Both lungs are clear. No infiltrate or pleural fluid. The heart and mediastinal contours are unremarkable. No acute bony pathology. IMPRESSION: No acute abnormality SL: EG-M CARDIAC Total CK 79 unit/L 12 - 191 01/22 [facility] CARDIAC Troponin-I null 0.00 - 01/22 [facility] 0.40 /2017 [facility] CARDIAC CK MB Index null 0.0 - 2.5 01/22 [facility] CARDIAC CK MB null 0.5 - 3.6 01/22 [facility] DRUG U Amph Scr Negative Negative 01/22 [facility] *NA* (01/22/18 6:09 AM) DRUG U Opiate Scr Negative Negative 01/22 [facility] *NA* (01/22/18 6:09 AM) DRUG U Cocaine Negative Negative 01/22 [facility] *NA* (01/22/18 6:09 AM) DRUG U Flora Scr Negative Negative 01/22 [facility]NA[facility] (01/22/18 6:09 AM) DRUG U Benzodia Negative Negative 01/22 [facility]NA* (01/22/18 6:09 AM) DRUG U Cannab Scr Negative Negative 01/22 [facility]NA* (01/22/18 6:09 AM) DRUG U Phencyc Negative Negative 01/22 [facility]NA* (01/22/18 6:09 AM) DRUG UDS Note See Note 01/22 [facility] (01/22/18 6:09 AM) CARDIAC Total CK 95 unit/L 12 - 191 01/22 [facility] CARDIAC Troponin-I null 0.00 - 01/22 [facility] 0.40 [facility] CARDIAC CK MB null 0.5 - 3.6 01/22 [facility] CARDIAC CK MB Index null 0.0 - 2.5 01/22 [facility] CHEM PANEL Lipase Lvl 118 unit/L 73 - 393 01/22 [facility] ELECTROLYT Chloride Lvl 105 meq/L 95 - 109 01/22 [facility] ELECTROLYT Potassium 3.9 meq/L 3.5 - 5.1 01/22 [facility] ELECTROLYT Calcium Lvl 9.3 mg/dL 8.5 - 10.5 01/22 [facility] ELECTROLYT Total 7.8 g/dL 6.4 - 8.4 01/22 [facility] ELECTROLYT CO2 28 meq/L 24 - 32 01/22 [facility] ELECTROLYT eGFR 103 01/22 Result Comment: The eGFR is calculated using the CKD-EPI formula. In most young, healthy individuals the eGFR will be >90 mL/ min/1.73m2. The eGFR declines with age. An eGFR of 60-89 may be normal in mL/min/1. some populations, particularly the elderly, for whom the CKD-EPI formula has not been extensively validated. Use of the eGFR is not recommended in the following populations: [facility] 3m2 Individuals with unstable creatinine concentrations, including patients and those with serious co-morbid conditions. Patients with extremes in muscle mass or diet. The data above are obtained from the National Kidney Disease Education Program (NKDEP) which additionally recommends that when the eGFR is used in patients with extremes of body mass index for purposes of drug dosing, the eGFR should be multiplied by the estimated BMI. ELECTROLYT Globulin 3.8 g/dL 2.7 - 4.2 01/22 Hospital ELECTROLYT A/G Ratio 1.1 0.7 - 1.6 01/22 Hospital ELECTROLYT Alk Phos 113 unit/L 39 - 136 01/22 Hospital ELECTROLYT AGAP 9.9 meq/L 10.0 - 01/22 20.0 Hospital ELECTROLYT Bili Total 0.5 mg/dL 0.2 - 1.3 01/22 Hospital ELECTROLYT B/C Ratio 15 6 - 25 01/22 Hospital ELECTROLYT Albumin Lvl 4.0 g/dL 3.5 - 5.0 01/22 Hospital ELECTROLYT ALT 40 unit/L 0 - 65 01/22 Hospital ELECTROLYT AST 22 unit/L 0 - 37 01/22 [facility] ELECTROLYT Glucose Lvl 96 mg/dL 70 - 99 01/22 Hospital ELECTROLYT Creatinine 0.98 mg/dL 0.50 - 01/22 Lvl 1.40 Hospital ELECTROLYT Sodium Lvl 139 meq/L 135 - 145 01/22 Hospital ELECTROLYT BUN 15 mg/dL 7 - 22 01/22 Hospital HEMATOLOGY D-Dimer null 01/22 Hospital HEMATOLOGY Platelet 242 K/CMM 133 - 450 01/22 Hospital HEMATOLOGY RDW 12.6 % 11.5 - 01/22 [facility] 14[facility]5 [facility] HEMATOLOGY MCHC 34.1 g/dL 32.0 - 01/22 [facility] 36.0 /2017 [facility] HEMATOLOGY MCH 30.0 pg 27.0 - 01/22 [facility] 31[facility]0 [facility] HEMATOLOGY MPV 7.7 fL 7.4 - 10.4 01/22 [facility] HEMATOLOGY Hct 47.0 % 42.0 - 01/22 [facility] 54[facility]0 [facility] HEMATOLOGY MCV 88.1 fL 80.0 - 01/22 [facility] 94[facility]0 [facility] HEMATOLOGY RBC 5.34 M/CMM 4.70 - 01/22 [facility] 6.10 [facility] HEMATOLOGY Hgb 16.0 g/dL 14.0 - 01/22 [facility] 18[facility]0 [facility] HEMATOLOGY WBC 6.2 K/CMM 3.7 - 10.4 01/22 [facility] HEMATOLOGY Lymphocytes 28.2 % 20.0 - 01/22 [facility] 40[facility]0 [facility] HEMATOLOGY Segs 61.5 % 45.0 - 01/22 [facility] 75.0 [facility] HEMATOLOGY Monocytes 8.5 % 2.0 - 12.0 01/22 [facility] HEMATOLOGY Eosinophils 0.1 K/CMM 0.0 - 0.5 01/22 [facility] # /2017 [facility] HEMATOLOGY Basophils 0.6 % 0.0 - 1.0 01/22 [facility] HEMATOLOGY Monocytes # 0.5 K/CMM 0.0 - 0.8 01/22 [facility] HEMATOLOGY Segs-Bands # 3.8 K/CMM 1.5 - 8.1 01/22 [facility] HEMATOLOGY Lymphocytes 1.7 K/CMM 1.0 - 5.5 01/22 [facility] # /2017 [facility] HEMATOLOGY Eosinophils 1.2 % 0.0 - 4.0 01/22 [facility] Brain wo Brain wo CT HEAD WITHOUT CONTRAST 01/22 - [facility] contrast contrast CT /2017 - Hospital CT Clinical Indication: - left dided numbness without weakness. Read by: Holger Lynch MD Dictated Date/time: 01/22/18 05:12 Comparison: 04/27/2017. Electronically Signed by: Holger Lynch MD 01/22/18 05:17 FINAL REPORT TECHNIQUE: CT images were obtained from the foramen magnum to the vertex without the use of intravenous contrast on a multidetector CT. CT imaging was performed with exposure control parameters to reduc e radiation dose. Coronal and sagittal reconstructions were obtained. CT radiation dose DLP: 1302 mGy-cm FINDINGS: There is no hemorrhage, extra-axial fluid collection, overt mass, midline shift or hydrocephalus. The visualized paranasal sinuses and mastoid air cells are clear. The calvarium and skull base are intact. If clinical concern persists for acute pathology further evaluation with MRI brain can be obtained if clinically warranted. IMPRESSION: No CT evidence of acute intracranial abnormality. SL: [id number] Chest Chest 1view Clinical Indication: Chest pain radiating to the left side. 01/22 - [facility] DX - Hospital Comparison: None Read by: Xiomy Boateng MD Dictated Date/time: 01/22/18 02:03 FINDINGS: Electronically Signed by: Xiomy Boateng MD 01/22/18 02:03 FINAL REPORT AP view of the chest submitted for interpretation. Lungs are clear. Heart size is normal. Central pulmonary vasculature appears normal. No effusion. No pneumothorax. No radiographically apparent acute osseous abnormality. IMPRESSION: 1. No radiographically apparent acute cardiopulmonary process. SL: [id number] URINE AND UA <=1.0 0.1 - 1.0 05/06 STOOL Urobilinogen mg/dL [facility] URINE AND UA WBC 2 /HPF 0 - 5 05/06 [facility] URINE AND UA RBC 1 /HPF 0 - 2 05/06 [facility] URINE AND UA Color Ltyellow 05/06 [facility] URINE AND UA Protein Negative Negative 05/06 [facility] mg/dL mg/dL [facility] URINE AND UA Bili Negative Negative 05/06 [facility] *NA* (05/05/17 10:30 PM) URINE AND UA Glucose Negative Negative 05/06 [facility] mg/dL mg/dL [facility] URINE AND UA pH 7.0 5.0 - 8.0 05/06 [facility] URINE AND UA Ketones Negative Negative 05/06 [facility] mg/dL mg/dL [facility] URINE AND UA Sq Epi Occasional Few /LPF 05/06 STOOL /LPF [facility] URINE AND UA Leuk Est Negative Negative 05/06 [facility] (05/05/17 10:30 PM) URINE AND UA Nitrite Negative Negative 05/06 [facility] (05/05/17 10:30 PM) URINE AND UA Blood Negative Negative 05/06 [facility] (05/05/17 10:30 PM) URINE AND UA Spec Grav 1.024 <=1.030 05/06 [facility] URINE AND UA Turbidity Clear Clear 05/06 [facility] (05/05/17 10:30 PM) CARDIAC CK MB Index null 0.0 - 2.5 05/06 [facility] CARDIAC CK MB null 0.5 - 3.6 05/06 [facility] CARDIAC Total CK 97 unit/L 12 - 191 05/06 [facility] CARDIAC Troponin-I null 0.00 - 05/06 [facility] 0. [facility] ELECTROLYT CO2 23 meq/L 24 - 32 05/06 [facility] ELECTROLYT Sodium Lvl 138 meq/L 135 - 145 05/06 [facility] ELECTROLYT Potassium 4.1 meq/L 3.5 - 5.1 05/06 ES Lvl [facility] ELECTROLYT Chloride Lvl 107 meq/L 95 - 109 05/06 [facility] ELECTROLYT eGFR 91 05/06 Result Comment: The eGFR is calculated using the CKD-EPI formula. In most young, healthy individuals the eGFR will be >90 mL/ min/1.73m2. The eGFR declines with age. An eGFR of 60-89 may be normal in mL/min/1.7 /2017 some populations, particularly the elderly, for whom the CKD-EPI formula has not been extensively validated. Use of the eGFR is not recommended in the following populations: [facility] 3m2 Individuals with unstable creatinine concentrations, including patients and those with serious co-morbid conditions. Patients with extremes in muscle mass or diet. The data above are obtained from the National Kidney Disease Education Program (NKDEP) which additionally recommends that when the eGFR is used in patients with extremes of body mass index for purposes of drug dosing, the eGFR should be multiplied by the estimated BMI. ELECTROLYT Bili Total 0.5 mg/dL 0.2 - 1.3 05/06 [facility] B/C Ratio 15 6 - 25 05/06 [facility] Calcium Lvl 9.2 mg/dL 8.5 - 10.5 05/06 [facility] AGAP 12.1 meq/L 10.0 - 05/06 [facility] 20.0 [facility] A/G Ratio 1.2 0.7 - 1.6 05/06 [facility] Globulin 3.7 g/dL 2.7 - 4.2 05/06 [facility] Total 8.0 g/dL 6.4 - 8.4 05/06 [facility] ALT 45 unit/L 0 - 65 05/06 [facility] Albumin Lvl 4.3 g/dL 3.5 - 5.0 05/06 [facility] Alk Phos 130 unit/L 39 - 136 05/06 [facility] AST 28 unit/L 0 - 37 05/06 [facility] Glucose Lvl 92 mg/dL 70 - 99 05/06 [facility] Creatinine 1.10 mg/dL 0.50 - 05/06 [facility] Lvl 1.40 /2016 [facility] ELECTROLYT BUN 16 mg/dL 7 - 22 05/06 [facility] HEMATOLOGY Eosinophils 0.1 K/CMM 0.0 - 0.5 05/06 [facility] # /2016 [facility] HEMATOLOGY Segs-Bands # 3.6 K/CMM 1.5 - 8.1 05/06 [facility] HEMATOLOGY Basophils 0.5 % 0.0 - 1.0 05/06 [facility] HEMATOLOGY Monocytes # 0.7 K/CMM 0.0 - 0.8 05/06 [facility] HEMATOLOGY Lymphocytes 2.3 K/CMM 1.0 - 5.5 05/06 # /2016 [facility] HEMATOLOGY Lymphocytes 33.8 % 20.0 - 05/06 40.0 [facility] HEMATOLOGY Monocytes 10.4 % 2.0 - 12.0 05/06 [facility] HEMATOLOGY Eosinophils 2.0 % 0.0 - 4.0 05/06 [facility] HEMATOLOGY Segs 53.3 % 45.0 - 05/06 [facility] 75.0 [facility] HEMATOLOGY RBC 5.44 M/CMM 4.70 - 05/06 [facility] 6.10 /[address] [facility] Hgb 16.5 g/dL 14.0 - 05/[address] [facility] WBC 6.8 K/CMM 3.7 - 10.4 05/[address] [facility] Hct 48.5 % 42.0 - 05/[address] [facility] MCHC 34.1 g/dL 32.0 - 05/[address] [facility] MCH 30.4 pg 27.0 - 05/[address] [facility] RDW 12.8 % 11.5 - 05/[address] [facility] Platelet 226 K/CMM 133 - 450 05/[address] [facility] MPV 7.0 fL 7.4 - 10.4 05/[address] [facility] MCV 89.2 fL 80.0 - 05/06 [facility] 94.0 [facility] Brain wo Brain wo EXAM: CT BRAIN WITHOUT CONTRAST 05/[address] DATE: 05/05/2017 10:14 PM CDT Read by: Jona Cabral MD Dictated Date/time: 05/05/17 23:08 Electronically Signed by: Jona Cabral MD 05/05/17 23:12 FINAL REPORT INDICATION: Dizziness. Hypertension. COMPARISON: None. TECHNIQUE: CT images were obtained from the foramen magnum to the vertex without intravenous contrast on a multidetector CT. Coronal and sagittal reconstructions were also provided for review. CT radiation dose DLP: 981.84 mGy-cm FINDINGS: No acute intracranial hemorrhage, midline shift, or mass effect is identified. The rojo-white matter differentiation is preserved. The ventricles and sulci are within normal limits, without evidence for hydrocephalus. The orbits, paranasal sinuses, and mastoid air cells are unremarkable. The calvarium and skull base are intact. IMPRESSION: No acute intracranial abnormality. SL: [id number] Chest Chest 1view Patient Name: KAIT RAMOS 05/05 - 1view DX : 1990; Age: 26 years y/o Male MR: [id number] Read by: Mark Barriga MD Dictated Date/time: 05/05/17 21:37 Electronically Signed by: Mark Barriga MD 05/05/17 21:38 FINAL REPORT Study: Chest 1view DX 05/05/2017 8:21 PM CDT Ordering Physician: Clinical Indication: Chest pain - chest pain; Comparison: 06/25/2016 1 view chest Lungs are clear. Heart size normal. No evidence for congestive heart failure or pulmonary edema. No pleural effusion or pneumothorax. No osseous abnormalities seen. IMPRESSION: Negative. SL: [place] CARDIAC CK MB Index null 0.0 - 2.5 06/25 [facility] CARDIAC Troponin-I null 0.00 - 06/25 [facility] 0.40 /2015 [facility] CARDIAC CK MB null 0.5 - 3.6 06/25 [facility] CARDIAC Total CK 86 unit/L 12 - 191 06/25 [facility] CHEM PANEL Lipase Lvl 89 unit/L 73 - 393 06/25 [facility] CHEM PANEL A/G Ratio 1.0 0.7 - 1.6 06/25 [facility] CHEM PANEL eGFR 83 06/25 Result Comment: The eGFR is calculated using the CKD-EPI formula. In most young, healthy individuals the eGFR will be >90 mL/ min/1.73m2. The eGFR declines with age. An eGFR of 60-89 may be normal in mL/min/1.7 /2016 some populations, particularly the elderly, for whom the CKD-EPI formula has not been extensively validated. Use of the eGFR is not recommended in the following populations: [facility] 3m2 Individuals with unstable creatinine concentrations, including patients and those with serious co-morbid conditions. Patients with extremes in muscle mass or diet. The data above are obtained from the National Kidney Disease Education Program (NKDEP) which additionally recommends that when the eGFR is used in patients with extremes of body mass index for purposes of drug dosing, the eGFR should be multiplied by the estimated BMI. CHEM PANEL AST 24 unit/L 0 - 37 06/25 [facility] CHEM PANEL Alk Phos 103 unit/L 39 - 136 06/25 [facility] CHEM PANEL Bili Total 0.7 mg/dL 0.2 - 1.3 06/25 [facility] CHEM PANEL B/C Ratio 11 6 - 25 06/25 [facility] CHEM PANEL Globulin 4.0 g/dL 2.7 - 4.2 06/25 [facility] CHEM PANEL AGAP 10.5 meq/L 10.0 - 06/25 [facility] 20.0 [facility] CHEM PANEL Creatinine 1.19 mg/dL 0.50 - 06/25 [facility] Lvl 1.40 /2015 [facility] CHEM PANEL Glucose Lvl 97 mg/dL 70 - 99 06/25 [facility] CHEM PANEL BUN 13 mg/dL 7 - 22 06/25 [facility] CHEM PANEL Albumin Lvl 4.1 g/dL 3.5 - 5.0 06/25 [facility] CHEM PANEL Total 8.1 g/dL 6.4 - 8.4 06/25 [facility] CHEM PANEL Sodium Lvl 139 meq/L 135 - 145 06/25 [facility] CHEM PANEL Potassium 4.5 meq/L 3.5 - 5.1 06/25 [facility] Lvl [facility] CHEM PANEL Chloride Lvl 104 meq/L 95 - 109 06/25 [facility] CHEM PANEL ALT 57 unit/L 0 - 65 06/25 [facility] CHEM PANEL CO2 29 meq/L 24 - 32 06/25 [facility] CHEM PANEL Calcium Lvl 9.1 mg/dL 8.5 - 10.5 06/25 [facility] DRUG U Phencyc Negative Negative 06/25 SCREEN Scr [facility] *NA* (06/25/16 1:42 PM) DRUG U Opiate Scr Negative Negative 06/25 [facility] *NA* (06/25/16 1:42 PM) DRUG UDS Note See Note 06/25 [facility] *NA* (06/25/16 1:42 PM) DRUG U Benzodia Negative Negative 06/25 SCREEN Scr [facility] *NA* (06/25/16 1:42 PM) DRUG U Cocaine Negative Negative 06/25 SCREEN Scr [facility] *NA* (06/25/16 1:42 PM) DRUG U Cannab Scr Negative Negative 06/25 SCREEN [facility] *NA* (06/25/16 1:42 PM) DRUG U Amph Scr Negative Negative 06/25 SCREEN [facility] *NA* (06/25/16 1:42 PM) DRUG U Flora Scr Negative Negative 06/25 [facility] *NA* (06/25/16 1:42 PM) HEMATOLOGY Segs-Bands # 3.5 K/CMM 1.5 - 8.1 06/25 [facility] HEMATOLOGY Monocytes 11.2 % 2.0 - 12.0 06/25 /2015 [facility] HEMATOLOGY Eosinophils 0.8 % 0.0 - 4.0 06/25 [facility] HEMATOLOGY Basophils 0.6 % 0.0 - 1.0 06/25 /2015 [facility] HEMATOLOGY Lymphocytes 1.6 K/CMM 1.0 - 5.5 06/25 [facility] # /2016 [facility] HEMATOLOGY Monocytes # 0.7 K/CMM 0.0 - 0.8 06/25 [facility] HEMATOLOGY Lymphocytes 28.0 % 20.0 - 06/25 [facility] 40.0 /2015 [facility] HEMATOLOGY Segs 59.4 % 45.0 - 06/25 75.0 /2015 [facility] HEMATOLOGY WBC 5.8 K/CMM 3.7 - 10.4 06/25 [facility] HEMATOLOGY RBC 5.54 M/CMM 4.70 - 06/25 6.10 /2015 [facility] HEMATOLOGY Hct 49.1 % 42.0 - 06/25 54.0 /2015 [facility] HEMATOLOGY Hgb 16.5 g/dL 14.0 - 06/25 18.0 [facility] HEMATOLOGY Platelet 249 K/CMM 133 - 450 06/25 [facility] /2015 [facility] HEMATOLOGY MCH 29.7 pg 27.0 - 06/25 31.0 /2015 [facility] HEMATOLOGY MPV 7.6 fL 7.4 - 10.4 06/25 [facility] HEMATOLOGY MCHC 33.6 g/dL 32.0 - 06/25 36.0 /2015 [facility] HEMATOLOGY MCV 88.5 fL 80.0 - 06/25 94.0 [facility] HEMATOLOGY RDW 12.7 % 11.5 - 06/25 14.5 [facility] URINE AND UA Sq Epi None Seen 06/25 STOOL [facility] URINE AND UA pH 6.0 5.0 - 8.0 06/25 STOOL [facility] URINE AND UA Protein Negative Negative 06/25 [facility] mg/dL mg/dL /2015 [facility] URINE AND UA Ketones Negative Negative 06/25 [facility] mg/dL mg/dL [facility] URINE AND UA Glucose Negative Negative 06/25 [facility] mg/dL mg/dL [facility] URINE AND UA Blood Negative Negative 06/25 STO[facility] /2015 [facility] (06/25/16 1:42 PM) URINE AND UA Bili Negative Negative 06/25 [facility] *NA* (06/25/16 1:42 PM) URINE AND UA Nitrite Negative Negative 06/25 [facility] (06/25/16 1:42 PM) URINE AND UA Leuk Est Negative Negative 06/25 [facility] [facility] (06/25/16 1:42 PM) URINE AND UA WBC 1 /HPF 0 - 5 06/25 [facility] URINE AND UA RBC 1 /HPF 0 - 2 06/25 [facility] URINE AND UA <=1.0 0.1 - 1.0 06/25 STOOL Urobilinogen mg/dL [facility] URINE AND UA Color Ltyellow 06/25 [facility] URINE AND UA Spec Grav 1.019 <=1.030 06/25 [facility] URINE AND UA Turbidity Clear Clear 06/25 [facility] (06/25/16 1:42 PM) Chest Chest 1view Clinical Indication:25 years Male with Chest pain 06/25 [facility] 1view DX DX - [facility] Comparison: Chest x-ray 04/27/2016 Read by: Mckay Bethea MD Dictated Date/time: 06/25/16 13:48 FINDINGS: Electronically Signed by: Mckay Bethea MD 06/25/16 13:49 FINAL REPORT Lines: None. The single frontal chest radiograph shows normal lung volumes. No interstitial or airspace opacities. No pleural effusion. No pneumothorax. Cardiac silhouette is normal. Pulmonary vasculature is normal. The trachea is midline. There are no clinically significant osseous abnormalities noted. IMPRESSION: No chest radiographic evidence of acute cardiopulmonary disease. CARDIAC CK MB Index null 0.0 - 2.5 04/27 [facility] CARDIAC Troponin-I null 0.00 - 04/27 ENZYMES 0.40 /2016 [facility] CARDIAC Total CK 143 unit/L 12 - 191 04/27 [facility] CARDIAC CK MB null 0.5 - 3.6 04/27 [facility] CHEM PANEL Lipase Lvl 111 unit/L 73 - 393 04/27 [facility] CHEM PANEL eGFR 86 04/27 Result Comment: The eGFR is calculated using the CKD-EPI formula. In most young, healthy individuals the eGFR will be >90 mL/ min/1.73m2. The eGFR declines with age. An eGFR of 60-89 may be normal in [facility] mL/min/1.7 /2016 some populations, particularly the elderly, for whom the CKD-EPI formula has not been extensively validated. Use of the eGFR is not recommended in the following populations: [facility] 3m2 Individuals with unstable creatinine concentrations, including patients and those with serious co-morbid conditions. Patients with extremes in muscle mass or diet. The data above are obtained from the National Kidney Disease Education Program (NKDEP) which additionally recommends that when the eGFR is used in patients with extremes of body mass index for purposes of drug dosing, the eGFR should be multiplied by the estimated BMI. CHEM PANEL Glucose Lvl 93 mg/dL 70 - 99 04/27 [facility] CHEM PANEL Calcium Lvl 8.7 mg/dL 8.5 - 10.5 04/27 [facility] CHEM PANEL Sodium Lvl 138 meq/L 135 - 145 04/27 [facility] CHEM PANEL Creatinine 1.16 mg/dL 0.50 - 04/27 MH Lvl 1.40 /2015 [facility] CHEM PANEL BUN 17 mg/dL 7 - 22 04/27 [facility] CHEM PANEL CO2 26 meq/L 24 - 32 04/27 [facility] CHEM PANEL Chloride Lvl 105 meq/L 95 - 109 04/27 [facility] CHEM PANEL Potassium 4.2 meq/L 3.5 - 5.1 04/27 [facility] CHEM PANEL Total 7.8 g/dL 6.4 - 8.4 04/27 [facility] CHEM PANEL Albumin Lvl 4.6 g/dL 3.5 - 5.0 04/27 [facility] CHEM PANEL ALT 33 unit/L 0 - 65 04/27 [facility] CHEM PANEL Alk Phos 93 unit/L 39 - 136 04/27 [facility] CHEM PANEL AST 17 unit/L 0 - 37 04/27 [facility] CHEM PANEL Bili Total 0.7 mg/dL 0.2 - 1.3 04/27 [facility] CHEM PANEL B/C Ratio 15 6 - 25 04/27 [facility] CHEM PANEL AGAP 11.2 meq/L 10.0 - 04/27 [facility] 20.0 [facility] CHEM PANEL Globulin 3.2 g/dL 2.0 - 4.0 04/27 [facility] CHEM PANEL A/G Ratio 1.4 0.7 - 1.6 04/27 [facility] HEMATOLOGY MPV 7.4 fL 7.4 - 10.4 04/[address] [facility] MCHC 33.2 g/dL 32.0 - 04/27 36.0 /2015 [facility] HEMATOLOGY MCH 29.9 pg 27.0 - 04/[address] [facility] RDW 12.3 % 11.5 - 04/27 MH 14.5 /[address] [facility] Platelet 232 K/CMM 133 - 450 04/27 [facility] HEMATOLOGY WBC 4.3 K/CMM 3.7 - 10.4 04/[address] [facility] Hct 47.3 % 42.0 - 04/[address] [facility] MCV 90.1 fL 80.0 - 04/[address] [facility] Hgb 15.7 g/dL 14.0 - 04/[address] [facility] RBC 5.25 M/CMM 4.70 - 04/27 MH 6.10 [facility] HEMATOLOGY D-Dimer null 04/27 [facility] HEMATOLOGY Eosinophils 0.8 % 0.0 - 4.0 04/27 [facility] HEMATOLOGY Basophils 0.8 % 0.0 - 1.0 04/27 [facility] HEMATOLOGY Lymphocytes 1.1 K/CMM 1.0 - 5.5 04/27 [facility] # /2015 [facility] HEMATOLOGY Segs-Bands # 2.9 K/CMM 1.5 - 8.1 04/[address] [facility] Monocytes # 0.2 K/CMM 0.0 - 0.8 04/27 [facility] HEMATOLOGY Segs 67.6 % 45.0 - 04/27 75.0 [facility] HEMATOLOGY Lymphocytes 25.2 % 20.0 - 04/[address] [facility] Monocytes 5.6 % 2.0 - 12.0 04/27 [facility] Chest Chest 1view Chest 1view DX 04/27 - 1view DX DX - [facility] CLINICAL HISTORY:Chest pain Read by: Alejo Vidales MD Dictated Date/time: 04/27/16 12:03 Electronically Signed by: Alejo Vidales MD 04/27/16 12:04 FINAL REPORT COMPARISON: 04/22/2016 FINDINGS: Limited AP portable study. Support Lines/Devices: none LUNGS: Lungs are reasonably well inflated. No opacities or any significant effusion. No pneumothorax is evident. Trachea is midline. Pulmonary vasculature is within normal limits. CARDIOMEDIASTINUM: Cardiomediastinal silhouette is within normal limits. OSSEOUS STRUCTURES: No significant bony abnormality is noted. SOFT TISSUES: No significant soft tissue abnormality is noted. IMPRESSION: No acute abnormality is noted in the chest. SL: [id number] Chest 2 Chest 2 Chest 2 views DX 04/22 - views DX views - [facility] CLINICAL HISTORY:Chest pain Read by: Alejo Vidales MD Dictated Date/time: 04/22/16 17:01 Electronically Signed by: Alejo Vidales MD 04/22/16 17:01 FINAL REPORT COMPARISON: none FINDINGS: LUNGS: Lungs are reasonably well inflated. No opacities or effusions. No pneumothorax. Trachea is midline. Pulmonary vasculature is within normal limits. CARDIOMEDIASTINUM: Cardiomediastinal silhouette is within normal limits. OSSEOUS STRUCTURES: No significant bony abnormality is noted. SOFT TISSUES: No significant soft tissue abnormality is noted. IMPRESSION: Normal 2 view chest. SL: [id number] Vital Signs Vital Sign Value Date Comments Source Heart Rate 68 05/05/2018 [facility] Systolic (mm Hg) 138 05/05/2018 [facility] Diastolic (mm Hg) 85 05/05/2018 [facility] Respitory Rate 16 05/05/2018 [facility] Weight 108.182 05/05/2018 [facility] BMI Calculated 34.22 05/05/2018 [facility] Height 177.8 cm 05/05/2018 [facility] Temperature Oral (F) 98.7 F 05/05/2018 [facility] Systolic (mm Hg) 148 05/05/2018 [facility] Diastolic (mm Hg) 90 05/05/2018 [facility] Heart Rate 65 05/05/2018 [facility] Respitory Rate 18 05/05/2018 [facility] Systolic (mm Hg) 146 04/15/2018 [facility] Diastolic (mm Hg) 82 04/15/2018 [facility] Respitory Rate 18 04/15/2018 [facility] Heart Rate 67 04/15/2018 [facility] Height 175.26 cm 04/14/2018 [facility] Temperature Oral (F) 99 F 04/14/2018 [facility] Heart Rate 77 04/14/2018 [facility] Respitory Rate 20 04/14/2018 [facility] Systolic (mm Hg) 135 04/14/2018 [facility] Diastolic (mm Hg) 80 04/14/2018 [facility] Weight 104.545 04/14/2018 [facility] BMI Calculated 34.04 04/14/2018 [facility] Systolic (mm Hg) 128 03/21/2018 [facility] Diastolic (mm Hg) 79 03/21/2018 [facility] Respitory Rate 18 03/21/2018 [facility] Temperature Oral (F) 98.5 F 03/21/2018 [facility] Systolic (mm Hg) 104 03/21/2018 [facility] Diastolic (mm Hg) 64 03/21/2018 [facility] Respitory Rate 18 03/21/2018 [facility] Temperature Oral (F) 99.2 F 03/21/2018 [facility] Systolic (mm Hg) 114 03/21/2018 [facility] Diastolic (mm Hg) 54 03/21/2018 [facility] Temperature Oral (F) 98.3 F 03/21/2018 [facility] Respitory Rate 18 03/21/2018 [facility] Weight 112.443 03/21/2018 [facility] BMI Calculated 35.57 03/21/2018 [facility] Height 177.8 cm 03/21/2018 [facility] Heart Rate 105 03/21/2018 [facility] Height 172.72 cm 03/21/2018 [facility] BMI Calculated 38.09 03/21/2018 [facility] Weight 113.636 03/21/2018 [facility] Temperature Oral (F) 98.0 F 01/22/2018 [facility] Systolic (mm Hg) 109 01/22/2018 [facility] Diastolic (mm Hg) 48 01/22/2018 [facility] Respitory Rate 16 01/22/2018 [facility] Respitory Rate 13 01/22/2018 [facility] Systolic (mm Hg) 114 01/22/2018 [facility] Diastolic (mm Hg) 68 01/22/2018 [facility] Respitory Rate 17 01/22/2018 [facility] Systolic (mm Hg) 119 01/22/2018 [facility] Diastolic (mm Hg) 71 01/22/2018 [facility] Heart Rate 70 01/22/2018 [facility] Heart Rate 59 01/22/2018 [facility] BMI Calculated 47.02 01/22/2018 [facility] Weight 148.636 01/22/2018 [facility] Temperature Oral (F) 98.6 F 01/22/2018 [facility] Heart Rate 89 01/22/2018 [facility] Height 177.8 cm 01/22/2018 [facility] Temperature Oral (F) 98.1 F 05/06/2017 [facility] Respitory Rate 18 05/06/2017 [facility] Systolic (mm Hg) 128 05/06/2017 [facility] Diastolic (mm Hg) 76 05/06/2017 [facility] Heart Rate 61 05/06/2017 [facility] Heart Rate 67 05/06/2017 [facility] Systolic (mm Hg) 148 05/06/2017 [facility] Diastolic (mm Hg) 88 05/06/2017 [facility] Temperature Oral (F) 98.5 F 05/06/2017 [facility] Respitory Rate 18 05/06/2017 [facility] BMI Calculated 31.92 05/06/2017 [facility] Weight 100.909 05/06/2017 [facility] Height 177.8 cm 05/06/2017 [facility] Heart Rate 66 06/25/2016 [facility] Temperature Oral (F) 98.2 F 06/25/2016 [facility] Respitory Rate 18 06/25/2016 [facility] Systolic (mm Hg) 153 06/25/2016 [facility] Diastolic (mm Hg) 77 06/25/2016 [facility] Respitory Rate 16 06/25/2016 [facility] Diastolic (mm Hg) 81 06/25/2016 [facility] Systolic (mm Hg) 155 06/25/2016 [facility] Heart Rate 70 06/25/2016 [facility] Height 182.88 cm 06/25/2016 [facility] Weight 109.091 06/25/2016 [facility] BMI Calculated 32.62 06/25/2016 [facility] Temperature Oral (F) 98.2 F 06/25/2016 [facility] Systolic (mm Hg) 160 06/25/2016 [facility] Diastolic (mm Hg) 109 06/25/2016 [facility] Heart Rate 69 06/25/2016 [facility] Respitory Rate 16 06/25/2016 [facility] Respitory Rate 18 04/27/2016 [facility] Systolic (mm Hg) 125 04/27/2016 [facility] Diastolic (mm Hg) 84 04/27/2016 [facility] Temperature Oral (F) 98.1 F 04/27/2016 [facility] Heart Rate 62 04/27/2016 [facility] Heart Rate 60 04/27/2016 [facility] Respitory Rate 18 04/27/2016 [facility] Temperature Oral (F) 98.1 F 04/27/2016 [facility] Height 175.26 cm 04/27/2016 [facility] BMI Calculated 32.56 04/27/2016 [facility] Weight 100 04/27/2016 [facility] Systolic (mm Hg) 130 04/27/2016 [facility] Diastolic (mm Hg) 87 04/27/2016 [facility] Temperature Oral (F) 98.8 F 04/22/2016 [facility] BMI Calculated 32.21 04/22/2016 [facility] Height 177.8 cm 04/22/2016 [facility] Systolic (mm Hg) 147 04/22/2016 [facility] Diastolic (mm Hg) 89 04/22/2016 [facility] Heart Rate 68 04/22/2016 [facility] Respitory Rate 20 04/22/2016 [facility] Weight 101.818 04/22/2016 [facility] Encounters Location Location Encounter Encounter Reason Attending ADM DC Status Source Details Type Number For Provider Date Date Visit [facility] Emergency [id number] Jimmy 04/22 04/22 [facility] 0 Castro /2015 [facility] EC Emergency [id number] Jett 04/27 04/27 [facility] 1 Guido /2015 [facility] Emergency [id number] Natali Gonzalez 06/25 06/[address] [facility] Emergency [id number] Cat Guido 05/06 05/[address] [facility] Emergency [id number] [place] 01/22 01/22 Love Carter 4 Esparza /2017 [facility] [id number] Jyoti 03/21 03/21 CLAYTON Carter 5 Sal /2017 [facility] Emergency [id number] Bala 04/14 04/15 CLAYTON Carter 6 Kun /2017 [facility] Emergency [id number] Shanita 05/05 05/05 CLAYTON Carter 7 Noelle [facility] Procedures Procedure Code Date Perfomer Comments Source
--- OUTSIDE RECORDS SUMMARY | 2018-08-19 18:43 | XMS REPORT | Summary of Care ---
:1990 Author Organization [facility] Address [address] [place], [place] [address]- Encounter HQ Paula(ZAK) [id number] Date(s): 05/05/17 - 05/05/17 [facility] [address] [place] [address]- Discharge Diagnosis: Dizziness Discharge Disposition: Home or Self Care Attending Physician: Michelle Guido DO Vital Signs Most recent to oldest [Reference Range]: 1 2 Height 177.8 cm (05/05/17 8:18 PM) Temperature Oral [96.4-99.1 DegF] 98.1 DegF 98.5 DegF (05/05/17 11:25 PM) (05/05/17 8:18 PM) Blood Pressure [90-140/60-90 mmHg] 128/76 mmHg 148/88 mmHg (05/05/17 11:25 PM) *HI* (05/05/17 8:18 PM) Respiratory Rate [14-20 BRMIN] 18 BRMIN 18 BRMIN (05/05/17 11:25 PM) (05/05/17 8:18 PM) Peripheral Pulse Rate [60-100 bpm] 61 bpm 67 bpm (05/05/17 11:25 PM) (05/05/17 8:18 PM) Weight 100.909 kg (05/05/17 8:18 PM) Body Mass Index 31.92 m2 (05/05/17 8:18 PM) Problem List No data available for this section Allergies, Adverse Reactions, Alerts Substance Reaction Severity Status NKDA Active Medications Saline Flush 0.9% 10 mL, Route: IVP, Drug Form: INJ, Dosing Weight 100.909, kg, PRN, PRN Line Flush, Start date: 05/05/17 20:21:00 CDT, Duration: 30 day, Stop date: 06/04/17 20:20:00 CDT Notes: (Same as: BD Posiflush) Start Date: 05/05/17 Stop Date: 05/06/17 Status: Discontinued Results ELECTROLYTES Most recent to oldest [Reference Range]: 1 Sodium Lvl [135-145 mEq/L] 138 mEq/L (05/05/17 10:14 PM) Potassium Lvl [3.5-5.1 mEq/L] 4.1 mEq/L (05/05/17 10:14 PM) Chloride Lvl [95-109 mEq/L] 107 mEq/L (05/05/17 10:14 PM) CO2 [24-32 mEq/L] 23 mEq/L *LOW* (05/05/17 10:14 PM) AGAP [10.0-20.0 mEq/L] 12.1 mEq/L (05/05/17 10:14 PM) CHEM PANEL Most recent to oldest [Reference Range]: 1 Creatinine Lvl [0.50-1.40 mg/dL] 1.10 mg/dL (05/05/17 10:14 PM) eGFR 91 mL/min/1.73m2 1 *NA* (05/05/17 10:14 PM) BUN [7-22 mg/dL] 16 mg/dL (05/05/17 10:14 PM) B/C Ratio [6-25] 15 (05/05/17 10:14 PM) Glucose Lvl [70-99 mg/dL] 92 mg/dL (05/05/17 10:14 PM) Total Protein [6.4-8.4 g/dL] 8.0 g/dL (05/05/17 10:14 PM) Albumin Lvl [3.5-5.0 g/dL] 4.3 g/dL (05/05/17 10:14 PM) Globulin [2.7-4.2 g/dL] 3.7 g/dL (05/05/17 10:14 PM) A/G Ratio [0.7-1.6] 1.2 (05/05/17 10:14 PM) Calcium Lvl [8.5-10.5 mg/dL] 9.2 mg/dL (05/05/17 10:14 PM) ALT [0-65 unit/L] 45 unit/L (05/05/17 10:14 PM) AST [0-37 unit/L] 28 unit/L (05/05/17 10:14 PM) Alk Phos [39-136 unit/L] 130 unit/L (05/05/17 10:14 PM) Bili Total [0.2-1.3 mg/dL] 0.5 mg/dL (05/05/17 10:14 PM) 1Result Comment: The eGFR is calculated using the CKD-EPI formula. In most young , healthy individualsthe eGFR will be >90 mL/min/1.73m2. The eGFR declines with age. An eGFR of 60-89 may be normal in some populations, particularly the elderly, for whom the CKD-EPI formula has not been extensively validated. Use of the eGFR is not recommended in the following populations: Individuals with unstable creatinine concentrations, including patients and those with serious co-morbid conditions. Patients with extremes in muscle mass or diet. The data above are obtained from the National Kidney Disease Education Program ( NKDEP) which additionally recommends that when the eGFR is used in patients with extremes of body mass index for purposesof drug dosing, the eGFR should be multiplied by the estimated BMI.CARDIAC ENZYMES Most recent to oldest [Reference Range]: 1 Total CK [12-191 unit/L] 97 unit/L (05/05/17 10:14 PM) CK MB [0.5-3.6 ng/mL] <0.5 ng/mL (05/05/17 10:14 PM) CK MB Index [0.0-2.5] <0.5 (05/05/17 10:14 PM) Troponin-I [0.00-0.40 ng/mL] <0.02 ng/mL (05/05/17 10:14 PM) URINE AND STOOL Most recent to oldest [Reference Range]: 1 UA Turbidity [Clear] Clear (05/05/17 10:30 PM) UA Color Ltyellow *NA* (05/05/17 10:30 PM) UA pH [5.0-8.0] 7.0 (05/05/17 10:30 PM) UA Spec Grav [<=1.030] 1.024 (05/05/17 10:30 PM) UA Glucose [Negative mg/dL] Negative mg/dL *NA* (6/28/17 10:30 PM) UA Blood [Negative] Negative (05/05/17 10:30 PM) UA Ketones [Negative mg/dL] Negative mg/dL *NA* (05/05/17 10:30 PM) UA Protein [Negative mg/dL] Negative mg/dL (05/05/17 10:30 PM) UA Urobilinogen [0.1-1.0 mg/dL] <=1.0 mg/dL *NA* (05/05/17 10:30 PM) UA Bili [Negative] Negative *NA* (05/05/17 10:30 PM) UA Leuk Est [Negative] Negative (05/05/17 10:30 PM) UA Nitrite [Negative] Negative (05/05/17 10:30 PM) UA WBC [0-5 /HPF] 2 /HPF (05/05/17 10:30 PM) UA RBC [0-2 /HPF] 1 /HPF (05/05/17 10:30 PM) UA Sq Epi [Few /LPF] Occasional /LPF *NA* (05/05/17 10:30 PM) HEMATOLOGY Most recent to oldest [Reference Range]: 1 WBC [3.7-10.4 K/CMM] 6.8 K/CMM (05/05/17 10:14 PM) RBC [4.70-6.10 M/CMM] 5.44 M/CMM (05/05/17 10:14 PM) Hgb [14.0-18.0 g/dL] 16.5 g/dL (05/05/17 10:14 PM) Hct [42.0-54.0 %] 48.5 % (05/05/17 10:14 PM) MCV [80.0-94.0 fL] 89.2 fL (05/05/17 10:14 PM) MCH [27.0-31.0 pg] 30.4 pg (05/05/17 10:14 PM) MCHC [32.0-36.0 g/dL] 34.1 g/dL (05/05/17 10:14 PM) RDW [11.5-14.5 %] 12.8 % (05/05/17 10:14 PM) Platelet [133-450 K/CMM] 226 K/CMM (05/05/17 10:14 PM) MPV [7.4-10.4 fL] 7.0 fL *LOW* (05/05/17 10:14 PM) Segs [45.0-75.0 %] 53.3 % (05/05/17 10:14 PM) Lymphocytes [20.0-40.0 %] 33.8 % (05/05/17 10:14 PM) Monocytes [2.0-12.0 %] 10.4 % (05/05/17 10:14 PM) Eosinophils [0.0-4.0 %] 2.0 % (05/05/17 10:14 PM) Basophils [0.0-1.0 %] 0.5 % (05/05/17 10:14 PM) Segs-Bands # [1.5-8.1 K/CMM] 3.6 K/CMM (05/05/17 10:14 PM) Lymphocytes # [1.0-5.5 K/CMM] 2.3 K/CMM (05/05/17 10:14 PM) Monocytes # [0.0-0.8 K/CMM] 0.7 K/CMM (05/05/17 10:14 PM) Eosinophils # [0.0-0.5 K/CMM] 0.1 K/CMM (05/05/17 10:14 PM) Immunizations No data available for this section Procedures No data available for this section Social History Social History Type Response Smoking Status Current every day smoker; Exposure to Tobacco Smoke None; Cigarette Smoking Last 365 Days No; Reg Smoking Cessation Counseling Yes Assessment and Plan No data available for this section
--- OUTSIDE RECORDS SUMMARY | 2018-08-19 18:43 | XMS REPORT | Summary of Care ---
:1990 Author Organization [facility] Address [address] [place], [place] [address]- Encounter HQ Paula(ZAK) [phone] Date(s): 04/27/16 - 04/27/16 [facility] [address] [place] [address]- [phone] Discharge Diagnosis: Myalgia Discharge Diagnosis: Other chest pain Discharge Disposition: Home Attending Physician: Jett Guido DO Vital Signs Most recent to oldest [Reference Range]: 1 2 Height 175.26 cm (04/27/16 8:35 AM) Temperature Oral [96.4-99.1 DegF] 98.1 DegF 98.1 DegF (04/27/16 12:47 PM) (04/27/16 8:35 AM) Blood Pressure [90-140/60-90 mmHg] 125/84 mmHg 130/87 mmHg (04/27/16 12:47 PM) (04/27/16 8:35 AM) Respiratory Rate [14-20 BRMIN] 18 BRMIN 18 BRMIN (04/27/16 12:47 PM) (04/27/16 8:35 AM) Peripheral Pulse Rate [60-100 bpm] 62 bpm 60 bpm (04/27/16 12:47 PM) (04/27/16 8:35 AM) Weight 100 kg (04/27/16 8:35 AM) Body Mass Index 32.56 m2 (04/27/16 8:35 AM) Problem List No data available for this section Allergies, Adverse Reactions, Alerts Substance Reaction Severity Status NKDA Active Medications dexamethasone 10 mg, 1 mL, Route: IM, Drug form: INJ, ONCE, Dosing Weight 100, kg, Priority: STAT, Start date: 04/27/16 8:56:00 CDT, Stop date: 04/27/16 8:56:00 CDT Notes: MEDICATION WASTE Product Size: 10 mgProduct Wasted: ___ mg Start Date: 04/27/16 Stop Date: 04/27/16 Status: Discontinueddexamethasone 10 mg, Route: IM, ONCE, Dosing Weight 100, kg, Priority: STAT, Start date: 04/27 9:19:00 CDT, Stop date: 04/27/16 9:19:00 CDT Start Date: 04/27/16 Stop Date: 04/27/16 Status: CompletedFlexeril 10 mg, 1 tab, Route: PO, Drug form: TAB, ONCE, Dosing Weight 100, kg, Priority: STAT, Start date: 04/27/16 8:56:00 CDT, Stop date: 04/27/16 8:56:00 CDT Notes: (Same As: Flexeril) Start Date: 04/27/16 Stop Date: 04/27/16 Status: CompletedFlexeril 10 mg oral tablet 10 mg, PO, TID, PRN Muscle Spasm, X 7 day, # 21 tab, 0 Refill(s) Start Date: 04/27/16 Stop Date: 05/04/16 Status: OrderedketOROLAC 60 mg, 2 mL, Route: IM, Drug form: INJ, ONCE, Dosing Weight 100, kg, Priority: STAT, Start date: 04/27/16 8:56:00 CDT, Stop date: 04/27/16 8:56:00 CDT Notes: (Same as:Toradol) IV bolus must be given >15 seconds. Give IM administration slowly and deeply into the muscle.Not for use > 4 days MEDICATION WASTE Product Size: 60 mgProduct Wasted: ___ mg Start Date: 04/27/16 Stop Date: 04/27/16 Status: CompletedUltram 50 mg oral tablet 100 mg, 2 tab, Route: PO, Drug form: TAB, ONCE, Dosing Weight 100, kg, Priority : STAT, Start date: 04/27/16 8:56:00 CDT, Stop date: 04/27/16 8:56:00 CDT Notes: Not to exceed 400mg/day. (Same As: Ultram) Start Date: 04/27/16 Stop Date: 04/27/16 Status: CompletedUltram 50 mg oral tablet 100 mg=2 tab, PO, Q6H, PRN pain, X 5 day, # 30 tab, 0 Refill(s) Start Date: 04/27/16 Stop Date: 05/02/16 Status: Ordered Results ELECTROLYTES Most recent to oldest [Reference Range]: 1 Sodium Lvl [135-145 mEq/L] 138 mEq/L (04/27/16 10:50 AM) Potassium Lvl [3.5-5.1 mEq/L] 4.2 mEq/L (04/27/16 10:50 AM) Chloride Lvl [95-109 mEq/L] 105 mEq/L (04/27/16 10:50 AM) CO2 [24-32 mEq/L] 26 mEq/L (04/27/16 10:50 AM) AGAP [10.0-20.0 mEq/L] 11.2 mEq/L (04/27/16 10:50 AM) CHEM PANEL Most recent to oldest [Reference Range]: 1 Creatinine Lvl [0.50-1.40 mg/dL] 1.16 mg/dL (04/27/16 10:50 AM) eGFR 86 mL/min/1.73m2 1 *NA* (04/27/16 10:50 AM) BUN [7-22 mg/dL] 17 mg/dL (04/27/16 10:50 AM) B/C Ratio [6-25] 15 (04/27/16 10:50 AM) Glucose Lvl [70-99 mg/dL] 93 mg/dL (04/27/16 10:50 AM) Total Protein [6.4-8.4 g/dL] 7.8 g/dL (04/27/16 10:50 AM) Albumin Lvl [3.5-5.0 g/dL] 4.6 g/dL (04/27/16 10:50 AM) Globulin [2.0-4.0 g/dL] 3.2 g/dL (04/27/16 10:50 AM) A/G Ratio [0.7-1.6] 1.4 (04/27/16 10:50 AM) Calcium Lvl [8.5-10.5 mg/dL] 8.7 mg/dL (04/27/16 10:50 AM) ALT [0-65 unit/L] 33 unit/L (04/27/16 10:50 AM) AST [0-37 unit/L] 17 unit/L (04/27/16 10:50 AM) Alk Phos [39-136 unit/L] 93 unit/L (04/27/16 10:50 AM) Bili Total [0.2-1.3 mg/dL] 0.7 mg/dL (04/27/16 10:50 AM) Lipase Lvl [73-393 unit/L] 111 unit/L (04/27/16 10:50 AM) 1Result Comment: The eGFR is calculated using [...] [Reference Range]: 1 Total CK [12-191 unit/L] 143 unit/L (04/27/16 10:50 AM) CK MB [0.5-3.6 ng/mL] <0.5 ng/mL (04/27/16 10:50 AM) CK MB Index [0.0-2.5] <0.3 (04/27/16 10:50 AM) Troponin-I [0.00-0.40 ng/mL] <0.02 ng/mL (04/27/16 10:50 AM) HEMATOLOGY Most recent to oldest [Reference Range]: 1 WBC [3.7-10.4 K/CMM] 4.3 K/CMM (04/27/16 10:50 AM) RBC [4.70-6.10 M/CMM] 5.25 M/CMM (04/27/16 10:50 AM) Hgb [14.0-18.0 g/dL] 15.7 g/dL (04/27/16 10:50 AM) Hct [42.0-54.0 %] 47.3 % (04/27/16 10:50 AM) MCV [80.0-94.0 fL] 90.1 fL (04/27/16 10:50 AM) MCH [27.0-31.0 pg] 29.9 pg (04/27/16 10:50 AM) MCHC [32.0-36.0 g/dL] 33.2 g/dL (04/27/16 10:50 AM) RDW [11.5-14.5 %] 12.3 % (04/27/16 10:50 AM) Platelet [133-450 K/CMM] 232 K/CMM (04/27/16 10:50 AM) MPV [7.4-10.4 fL] 7.4 fL (04/27/16 10:50 AM) Segs [45.0-75.0 %] 67.6 % (04/27/16 10:50 AM) Lymphocytes [20.0-40.0 %] 25.2 % (04/27/16 10:50 AM) Monocytes [2.0-12.0 %] 5.6 % (04/27/16 10:50 AM) Eosinophils [0.0-4.0 %] 0.8 % (04/27/16 10:50 AM) Basophils [0.0-1.0 %] 0.8 % (04/27/16 10:50 AM) Segs-Bands # [1.5-8.1 K/CMM] 2.9 K/CMM (04/27/16 10:50 AM) Lymphocytes # [1.0-5.5 K/CMM] 1.1 K/CMM (04/27/16 10:50 AM) Monocytes # [0.0-0.8 K/CMM] 0.2 K/CMM (04/27/16 10:50 AM) D-Dimer <0.22 ug/mL FEU *NA* (04/27/16 10:50 AM) Immunizations No data available for this section Procedures No data available for this section Social History Social History Type Response Smoking Status Current every day smoker; Exposure to Tobacco Smoke None; Cigarette Smoking Last 365 Days No; Reg Smoking Cessation Counseling Yes Assessment and Plan No data available for this section
--- OUTSIDE RECORDS SUMMARY | 2018-08-19 18:43 | XMS REPORT | Summary of Care ---
:1990 Author Organization [facility] Address [address] [place], [place] [address]- Encounter HQ Paula(ZAK) [phone] Date(s): 04/22/16 - 04/22/16 [facility] [address] [place] [address]- Discharge Diagnosis: Atypical chest pain Discharge Disposition: Home Attending Physician: Jimmy Castro MD Vital Signs Most recent to oldest [Reference Range]: 1 Height 177.8 cm (04/22/16 3:52 PM) Temperature Oral [96.4-99.1 DegF] 98.8 DegF (04/22/16 3:52 PM) Blood Pressure [90-140/60-90 mmHg] 147/89 mmHg *HI* (04/22/16 3:52 PM) Respiratory Rate [14-20 BRMIN] 20 BRMIN (04/22/16 3:52 PM) Peripheral Pulse Rate [60-100 bpm] 68 bpm (04/22/16 3:52 PM) Weight 101.818 kg (04/22/16 3:52 PM) Body Mass Index 32.21 m2 (04/22/16 3:52 PM) Problem List No data available for this section Allergies, Adverse Reactions, Alerts Substance Reaction Severity Status NKDA Active Medications ketOROLAC 60 mg, 2 mL, Route: IM, Drug form: INJ, ONCE, Dosing Weight 101.818, kg, Priority: STAT, Start date:04/22/16 17:24:00 CDT, Stop date: 04/22/16 17:24:00 CDT Notes: (Same as:Toradol) IV bolus must be given >15 seconds. Give IM administration slowly and deeply into the muscle.Not for use > 4 days MEDICATION WASTE Product Size: 60 mgProduct Wasted: ___ mg Start Date: 04/22/16 Stop Date: 04/22/16 Status: Completednaproxen 500 mg oral tablet 500 mg=1 tab, PO, BID, PRN Pain, # 30 tab, 0 Refill(s) Start Date: 04/22/16 Status: Ordered Results No data available for this section Immunizations No data available for this section Procedures No data available for this section Social History Social History Type Response Smoking Status Current every day smoker; Exposure to Tobacco Smoke None; Cigarette Smoking Last 365 Days No; Reg Smoking Cessation Counseling Yes Assessment and Plan No data available for this section
--- OUTSIDE RECORDS SUMMARY | 2018-08-19 18:43 | XMS REPORT | Summary of Care ---
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) - Discharge Disposition: Home or Self Care Attending Physician: Paris Esparza DO Vital Signs Most recent to oldest 1 2 3 [Reference Range]: Height 177.8 cm (01/21/18 11:56 PM) Temperature Oral [96.4-99.1 98.0 DegF 98.6 DegF DegF] (01/22/18 8:52 AM) (01/21/18 11:56 PM) Blood Pressure [90-140/60-90 109/48 mmHg 114/68 mmHg 119/71 mmHg mmHg] (01/22/18 8:52 AM) (01/22/18 7:44 AM) (01/22/18 7:00 AM) Respiratory Rate [14-20 16 BRMIN 13 BRMIN 17 BRMIN BRMIN] (01/22/18 8:52 AM) *LOW* (01/22/18 7:00 AM) (01/22/18 7:44 AM) Peripheral Pulse Rate 70 bpm 59 bpm 89 bpm [60-100 bpm] (01/22/18 3:30 AM) *LOW* (01/21/18 11:56 PM) (01/22/18 2:30 AM) Weight 148.636 kg (01/21/18 11:56 PM) Body Mass Index 47.02 m2 (01/21/18 11:56 PM) Problem List No data available for this section Allergies, Adverse Reactions, Alerts Substance Reaction Severity Status NKDA Active Medications aspirin 324 mg, Route: PO, ONCE, Dosing Weight 148.636, kg, Priority: STAT, Start date: 01/22/18 1:15:00 CDT, Stop date: 01/22/18 1:15:00 CDT Start Date: 01/22/18 Stop Date: 01/22/18 Status: CompletedSaline Flush 0.9% 10 mL, Route: IVP, Drug Form: INJ, Dosing Weight 148.636, kg, PRN, PRN Line Flush, Start date: 01/22/18 1:15:00 CDT, Duration: 30 day, Stop date: 02/21/18 1 :14:00 CDT Notes: (Same as: BD Posiflush) Start Date: 01/22/18 Stop Date: 01/22/18 Status: Discontinued Results ELECTROLYTES Most recent to oldest [Reference Range]: 1 2 Sodium Lvl [135-145 mEq/L] 139 mEq/L (01/22/18 2:45 AM) Potassium Lvl [3.5-5.1 mEq/L] 3.9 mEq/L (01/22/18 2:45 AM) Chloride Lvl [95-109 mEq/L] 105 mEq/L (01/22/18 2:45 AM) CO2 [24-32 mEq/L] 28 mEq/L (01/22/18 2:45 AM) AGAP [10.0-20.0 mEq/L] 9.9 mEq/L *LOW* (01/22/18 2:45 AM) CHEM PANEL Most recent to oldest [Reference Range]: 1 2 Creatinine Lvl [0.50-1.40 mg/dL] 0.98 mg/dL (01/22/18 2:45 AM) eGFR 103 mL/min/1.73m2 1 *NA* (01/22/18 2:45 AM) BUN [7-22 mg/dL] 15 mg/dL (01/22/18 2:45 AM) B/C Ratio [6-25] 15 (01/22/18 2:45 AM) Glucose Lvl [70-99 mg/dL] 96 mg/dL (01/22/18 2:45 AM) Total Protein [6.4-8.4 g/dL] 7.8 g/dL (01/22/18 2:45 AM) Albumin Lvl [3.5-5.0 g/dL] 4.0 g/dL (01/22/18 2:45 AM) Globulin [2.7-4.2 g/dL] 3.8 g/dL (01/22/18 2:45 AM) A/G Ratio [0.7-1.6] 1.1 (01/22/18 2:45 AM) Calcium Lvl [8.5-10.5 mg/dL] 9.3 mg/dL (01/22/18 2:45 AM) ALT [0-65 unit/L] 40 unit/L (01/22/18 2:45 AM) AST [0-37 unit/L] 22 unit/L (01/22/18 2:45 AM) Alk Phos [39-136 unit/L] 113 unit/L (01/22/18 2:45 AM) Bili Total [0.2-1.3 mg/dL] 0.5 mg/dL (01/22/18 2:45 AM) Lipase Lvl [73-393 unit/L] 118 unit/L (01/22/18 2:45 AM) 1Result Comment: The eGFR is calculated using the CKD-EPI formula. In most young , healthy individualsthe eGFR will be >90 mL/min/1.73m2. The eGFR declines with age. An eGFR of 60-89 may be normal insome populations, particularly the elderly, for whom the [...] recent to oldest [Reference Range]: 1 2 Total CK [12-191 unit/L] 79 unit/L 95 unit/L (01/22/18 6:56 AM) (01/22/18 2:45 AM) CK MB [0.5-3.6 ng/mL] <0.5 ng/mL <0.5 ng/mL (01/22/18 6:56 AM) (01/22/18 2:45 AM) CK MB Index [0.0-2.5] <0.6 <0.5 (01/22/18 6:56 AM) (01/22/18 2:45 AM) Troponin-I [0.00-0.40 ng/mL] <0.02 ng/mL <0.02 ng/mL (01/22/18 6:56 AM) (01/22/18 2:45 AM) DRUG SCREEN Most recent to oldest [Reference Range]: 1 2 U Amph Scr [Negative] Negative *NA* (01/22/18 6:09 AM) U Flora Scr [Negative] Negative *NA* (01/22/18 6:09 AM) U Benzodia Scr [Negative] Negative *NA* (01/22/18 6:09 AM) U Cocaine Scr [Negative] Negative *NA* (01/22/18 6:09 AM) U Opiate Scr [Negative] Negative *NA* (01/22/18 6:09 AM) U Phencyc Scr [Negative] Negative *NA* (01/22/18 6:09 AM) U Cannab Scr [Negative] Negative *NA* (01/22/18 6:09 AM) UDS Note See Note (01/22/18 6:09 AM) HEMATOLOGY Most recent to oldest [Reference Range]: 1 2 WBC [3.7-10.4 K/CMM] 6.2 K/CMM (01/22/18 2:45 AM) RBC [4.70-6.10 M/CMM] 5.34 M/CMM (01/22/18 2:45 AM) Hgb [14.0-18.0 g/dL] 16.0 g/dL (01/22/18 2:45 AM) Hct [42.0-54.0 %] 47.0 % (01/22/18 2:45 AM) MCV [80.0-94.0 fL] 88.1 fL (01/22/18 2:45 AM) MCH [27.0-31.0 pg] 30.0 pg (01/22/18 2:45 AM) MCHC [32.0-36.0 g/dL] 34.1 g/dL (01/22/18 2:45 AM) RDW [11.5-14.5 %] 12.6 % (01/22/18 2:45 AM) MPV [7.4-10.4 fL] 7.7 fL (01/22/18 2:45 AM) Platelet [133-450 K/CMM] 242 K/CMM (01/22/18 2:45 AM) Segs [45.0-75.0 %] 61.5 % (01/22/18 2:45 AM) Lymphocytes [20.0-40.0 %] 28.2 % (01/22/18 2:45 AM) Monocytes [2.0-12.0 %] 8.5 % (01/22/18 2:45 AM) Eosinophils [0.0-4.0 %] 1.2 % (01/22/18 2:45 AM) Basophils [0.0-1.0 %] 0.6 % (01/22/18 2:45 AM) Segs-Bands # [1.5-8.1 K/CMM] 3.8 K/CMM (01/22/18 2:45 AM) Lymphocytes # [1.0-5.5 K/CMM] 1.7 K/CMM (01/22/18 2:45 AM) Monocytes # [0.0-0.8 K/CMM] 0.5 K/CMM (01/22/18 2:45 AM) Eosinophils # [0.0-0.5 K/CMM] 0.1 K/CMM (01/22/18 2:45 AM) D-Dimer <0.27 ug/mL FEU *NA* (01/22/18 2:45 AM) Immunizations No data available for this section Procedures No data available for this section Social History Social History Type Response Substance Abuse Use: Current. Type: Marijuana.1 Sexual Sexually active: Yes. Sexual orientation: Don't Know. 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 Alcohol Current, Type Beer.2 Smoking Status Never smoker; Ready to change: No; Concerns about tobacco use in household: No; Exposure to Tobacco Smoke None; Cigarette Smoking Last 365 Days No; Reg Smoking Cessation Counseling No entered on: 04/14/18 1Reports having used drug today around noon.2Reports having had 10 beers earlier today around noon. Assessment and Plan No data available for this section
--- OUTSIDE RECORDS SUMMARY | 2018-08-19 18:43 | XMS REPORT | Summary of Care ---
:1990 Author Organization [facility] Address [address] [place] [address]- Encounter HQ Alexntr_na(FIN) [id number] Date(s): 03/20/18 - 03/21/18 [facility] [address] [place] [address]- [phone] Discharge Disposition: Home or Self Care Attending Physician: Jyoti Huang MD Admitting Physician: Jyoti Huang MD Vital Signs Most recent to oldest 1 2 3 [Reference Range]: Height 177.8 cm 172.72 cm (03/20/18 11:29 PM) (03/20/18 7:00 PM) Temperature Oral [96.4-99.1 98.5 DegF 99.2 DegF 98.3 DegF DegF] (03/21/18 11:24 AM) *HI* (03/21/18 3:50 AM) (03/21/18 7:29 AM) Blood Pressure [90-140/60-90 128/79 mmHg 104/64 mmHg 114/54 mmHg mmHg] (03/21/18 11:24 AM) (03/21/18 7:29 AM) (03/21/18 3:50 AM) Respiratory Rate [14-20 18 BRMIN 18 BRMIN 18 BRMIN BRMIN] (03/21/18 11:24 AM) (03/21/18 7:29 AM) (03/21/18 12:53 AM) Peripheral Pulse Rate [60-100 105 bpm bpm] *HI* (03/20/18 7:00 PM) Weight 112.443 kg 113.636 kg (03/20/18 11:29 PM) (03/20/18 7:00 PM) Body Mass Index 35.57 m2 38.09 m2 (03/20/18 11:29 PM) (03/20/18 7:00 PM) Problem List No data available for this section Allergies, Adverse Reactions, Alerts Substance Reaction Severity Status NKDA Active Medications aspirin 325 mg, Route: PO, Drug form: TAB, ONCE, Dosing Weight 113.636, kg, Priority: STAT, Start date: 03/20/18 22:10:00 CDT, Stop date: 03/20/18 22:10:00 CDT Start Date: 03/20/18 Stop Date: 03/20/18 Status: Discontinuedaspirin 325 mg tablet, enteric coated 325 mg, 1 tab, Route: PO, Drug form: ECTAB, Daily, Dosing Weight 113.636, kg, Start date: 03/21/18 9:00:00 CDT, Duration: 30 day, Stop date: 04/19/18 9:00:00 CDT Notes: (Do Not Crush) Do not crush or chew. Start Date: 03/21/18 Stop Date: 03/21/18 Status: DiscontinuedAtivan 1 mg, 0.5 mL, Route: IV, Drug form: INJ, Q2H, Dosing Weight 113.636, kg, PRN as needed for anxiety, Start date: 03/20/18 22:21:00 CDT, Duration: 30 day, Stop date: 04/19/18 22:20:00 CDT Notes: (Same as: Ativan) Start Date: 03/20/18 Stop Date: 03/21/18 Status: DiscontinuedAtivan 1 mg, 1 tab, Route: PO, Drug form: TAB, ONCE, Dosing Weight 113.636, kg, Start date: 03/20/18 20:50:00 CDT, Stop date: 03/20/18 20:50:00 CDT Notes: (Same as: Ativan) Start Date: 03/20/18 Stop Date: 03/20/18 Status: CompletedAtivan 1 mg, Route: IVP, Drug form: INJ, ONCE, Dosing Weight 113.636, kg, Priority: STAT, Start date: 03/20/18 22:10:00 CDT, Stop date: 03/20/18 22:10:00 CDT Start Date: 03/20/18 Stop Date: 03/20/18 Status: CompletedBD Normal Saline Flush 25 mL, Route: IV, Drug Form: INJ, PRN, PRN Line Flush, Start date: 03/21/18 8:00 :00 CDT, Duration: 30 day, Stop date: 04/20/18 7:59:00 CDT Notes: (Same as: BD Posiflush) Start Date: 03/21/18 Stop Date: 03/21/18 Status: Discontinuedfamotidine 20 mg, 1 tab, Route: PO, Drug form: TAB, Q12H, Start date: 03/21/18 9:00:00 CDT , Duration: 30 day, Stop date: 04/19/18 21:00:00 CDT Notes: (Same as: Pepcid) Start Date: 03/21/18 Stop Date: 03/21/18 Status: Discontinuednitroglycerin SL Tab 0.4 mg, 1 tab, Route: SL, Drug form: TAB, Q5Min, Dosing Weight 113.636, kg, PRN Chest Pain, Start date: 03/20/18 22:20:00 CDT, Duration: 3 doses or times, Stop date: Limited # of times Notes: (Same as:Nitroquick, Nitrostat)"Do Not Crush" Sublingual tablet Start Date: 03/20/18 Stop Date: 03/21/18 Status: Discontinuednormal saline 0.9% IV 1,000 mL 1,000 mL, Rate: 125 ml/hr, Infuse over: 8 hr, Route: IV, Dosing Weight 113.636 kg, Total Volume: 1,000, Start date: 03/20/18 22:22:00 CDT, Duration: 30 day, Stop date: 04/19/18 22:21:00 CDT, 2.37, m2 Start Date: 03/20/18 Stop Date: 03/21/18 Status: Discontinuedomeprazole 20 mg, Route: PO, Drug form: ECCAP, Before Breakfast, Dosing Weight 112.443, kg , Start date: 03/22/18 7:30:00 CDT, Duration: 30 day, Stop date: 04/20/18 7:30: 00 CDT Start Date: 03/22/18 Stop Date: 03/21/18 Status: Deletedondansetron 4 mg, 1 tab, Route: PO, Drug form: TABDIS, Q8H, Dosing Weight 113.636, kg, PRN Nausea & Vomiting, Start date: 03/20/18 22:20:00 CDT, Duration: 30 day, Stop date: 04/19/18 22:19:00 CDT Notes: (Same as: Zofran ODT) Start Date: 03/20/18 Stop Date: 03/21/18 Status: DiscontinuedPepcid 20 mg, Route: IVP, Q12H, Dosing Weight 113.636, kg, Start date: 03/21/18 9:00: 00 CDT, Duration: 30 day, Stop date: 04/19/18 21:00:00 CDT Start Date: 03/21/18 Stop Date: 03/21/18 Status: DeletedPrilosec 40 mg oral delayed release capsule 40 mg=1 cap, PO, Daily, # 30 cap, 0 Refill(s), Pharmacy: [facility] [id number] Start Date: 03/21/18 Status: OrderedProtonix 40 mg, 1 tab, Route: PO, Drug form: ECTAB, Before Breakfast, Start date: 7:30:00 CDT, Duration: 30 day, Stop date: 04/20/18 7:30:00 CDT Notes: (Same as: Protonix) Start Date: 03/22/18 Stop Date: 03/21/18 Status: CanceledSaline Flush 0.9% 10 ml, Route: IVP, Drug Form: INJ, Dosing Weight 113.636, kg, PRN, PRN Line Flush, Start date: 03/20/18 22:20:00 CDT, Duration: 30 day, Stop date: 04/19/18 22:19:00 CDT Notes: (Same as: BD Posiflush) Start Date: 03/20/18 Stop Date: 03/21/18 Status: DiscontinuedSaline Flush 0.9% 10 ml, Route: IVP, Drug Form: INJ, Dosing Weight 113.636, kg, Q12H, Start date: 03/21/18 9:00:00 CDT, Duration: 30 day, Stop date: 04/19/18 21:00:00 CDT Notes: (Same as: BD Posiflush) Start Date: 03/21/18 Stop Date: 03/21/18 Status: DiscontinuedSodium Chloride 0.9% (Bolus) IV 1,000 mL, 1000 ml/hr, Infuse Over: 1 hr, Route: IV, 1,000, Drug form: INJ, ONCE , Priority: STAT, Dosing Weight 148.636 kg, Start date: 03/20/18 19:13:00 CDT, Stop date: 03/20/18 19:13:00 CDT Start Date: 03/20/18 Stop Date: 03/20/18 Status: CompletedSodium Chloride 0.9% (Bolus) IV 1,000 mL, 1000 ml/hr, Infuse Over: 1 hr, Route: IV, 1,000, Drug form: INJ, ONCE , Priority: STAT, Dosing Weight 113.636 kg, Start date: 03/20/18 20:50:00 CDT, Stop date: 03/20/18 20:50:00 CDT Start Date: 03/20/18 Stop Date: 03/20/18 Status: Completed Results ELECTROLYTES Most recent to oldest [Reference Range]: 1 2 3 Sodium Lvl [135-145 mEq/L] 142 mEq/L (03/20/18 7:40 PM) Potassium Lvl [3.5-5.1 mEq/L] 3.7 mEq/L (03/20/18 7:40 PM) Chloride Lvl [95-109 mEq/L] 112 mEq/L *HI* (03/20/18 7:40 PM) CO2 [24-32 mEq/L] 23 mEq/L *LOW* (03/20/18 7:40 PM) AGAP [10.0-20.0 mEq/L] 10.7 mEq/L (03/20/18 7:40 PM) CHEM PANEL Most recent to oldest [Reference Range]: 1 2 3 Creatinine Lvl [0.50-1.40 mg/dL] 1.10 mg/dL (03/20/18 7:40 PM) eGFR 90 mL/min/1.73m2 1 *NA* (03/20/18 7:40 PM) BUN [7-22 mg/dL] 12 mg/dL (03/20/18 7:40 PM) B/C Ratio [6-25] 11 (03/20/18 7:40 PM) Glucose Lvl [70-99 mg/dL] 95 mg/dL (03/20/18 7:40 PM) Total Protein [6.4-8.4 g/dL] 7.3 g/dL (03/20/18 7:40 PM) Albumin Lvl [3.5-5.0 g/dL] 3.7 g/dL (03/20/18 7:40 PM) Globulin [2.7-4.2 g/dL] 3.6 g/dL (03/20/18 7:40 PM) A/G Ratio [0.7-1.6] 1.0 (03/20/18 7:40 PM) Calcium Lvl [8.5-10.5 mg/dL] 8.1 mg/dL *LOW* (03/20/18 7:40 PM) ALT [0-65 unit/L] 36 unit/L (03/20/18 7:40 PM) AST [0-37 unit/L] 20 unit/L (03/20/18 7:40 PM) Alk Phos [39-136 unit/L] 112 unit/L (03/20/18 7:40 PM) Bili Total [0.2-1.3 mg/dL] 0.3 mg/dL (03/20/18 7:40 PM) Lipase Lvl [73-393 unit/L] 100 unit/L (03/20/18 7:40 PM) 1Result Comment: The eGFR is calculated [...] estimated BMI.CARDIAC ENZYMES Most recent to oldest 1 2 3 [Reference Range]: Total CK [12-191 unit/L] 88 unit/L (03/20/18 7:40 PM) CK MB [0.5-3.6 ng/mL] <0.5 ng/mL (03/20/18 7:40 PM) CK MB Index [0.0-2.5] <0.6 (03/20/18 7:40 PM) Troponin-I [0.00-0.40 ng/mL] <0.02 ng/mL <0.02 ng/mL <0.02 ng/mL (03/21/18 3:47 AM) (03/20/18 11:30 PM) (03/20/18 7:40 PM) BNP [<=100 pg/mL] <2 pg/mL (03/20/18 7:40 PM) LIPIDS Most recent to oldest [Reference Range]: 1 2 3 CHD Risk [4.00-7.30] 4.67 (03/21/18 3:47 AM) Chol [<=199 mg/dL] 154 mg/dL (03/21/18 3:47 AM) Trig [<=149 mg/dL] 183 mg/dL *HI* (03/21/18 3:47 AM) HDL [>=61 mg/dL] 33 mg/dL *LOW* (03/21/18 3:47 AM) LDL (Calculated) [<=99 mg/dL] 84 mg/dL (03/21/18 3:47 AM) VLDL 37 *NA* (03/21/18 3:47 AM) DRUG SCREEN Most recent to oldest [Reference Range]: 1 2 3 U Amph Scr [Negative] Negative *NA* (03/20/18 7:40 PM) U Flora Scr [Negative] Negative *NA* (03/20/18 7:40 PM) U Benzodia Scr [Negative] Negative *NA* (03/20/18 7:40 PM) U Cocaine Scr [Negative] Positive *ABN* (03/20/18 7:40 PM) U Opiate Scr [Negative] Negative *NA* (03/20/18 7:40 PM) U Phencyc Scr [Negative] Negative *NA* (03/20/18 7:40 PM) U Cannab Scr [Negative] Positive *ABN* (03/20/18 7:40 PM) UDS Note See Note (03/20/18 7:40 PM) URINE AND STOOL Most recent to oldest [Reference Range]: 1 2 3 UA Turbidity [Clear] Clear (03/20/18 7:40 PM) UA Color [Yellow] Light Yellow *NA* (03/20/18 7:40 PM) UA pH [5.0-8.0] 5.0 (03/20/18 7:40 PM) UA Spec Grav [<=1.030] 1.020 (03/20/18 7:40 PM) UA Glucose [Negative mg/dL] Negative mg/dL *NA* (03/20/18 7:40 PM) UA Blood [Negative] Negative (03/20/18 7:40 PM) UA Ketones [Negative mg/dL] Trace mg/dL *ABN* (03/20/18 7:40 PM) UA Protein [Negative mg/dL] Negative mg/dL (03/20/18 7:40 PM) UA Urobilinogen [0.1-1.0 mg/dL] <=1.0 mg/dL *NA* (03/20/18 7:40 PM) UA Bili [Negative] Negative *NA* (03/20/18 7:40 PM) UA Leuk Est [Negative] Negative (03/20/18 7:40 PM) UA Nitrite [Negative] Negative (03/20/18 7:40 PM) UA WBC [0-5 /HPF] 1 /HPF (03/20/18 7:40 PM) UA RBC [0-2 /HPF] <1 /HPF (03/20/18 7:40 PM) UA Sq Epi None Seen *NA* (03/20/18 7:40 PM) UA Mucus [None Seen /LPF] Few /LPF *NA* (03/20/18 7:40 PM) HEMATOLOGY Most recent to oldest [Reference Range]: 1 2 3 WBC [3.7-10.4 K/CMM] 6.1 K/CMM (03/20/18 7:40 PM) RBC [4.70-6.10 M/CMM] 4.78 M/CMM (03/20/18 7:40 PM) Hgb [14.0-18.0 g/dL] 14.3 g/dL (03/20/18 7:40 PM) Hct [42.0-54.0 %] 42.3 % (03/20/18 7:40 PM) MCV [80.0-94.0 fL] 88.5 fL (03/20/18 7:40 PM) MCH [27.0-31.0 pg] 30.0 pg (03/20/18 7:40 PM) MCHC [32.0-36.0 g/dL] 33.9 g/dL (03/20/18 7:40 PM) RDW [11.5-14.5 %] 12.9 % (03/20/18 7:40 PM) MPV [7.4-10.4 fL] 7.2 fL *LOW* (03/20/18 7:40 PM) Platelet [133-450 K/CMM] 243 K/CMM (03/20/18 7:40 PM) Segs [45.0-75.0 %] 57.9 % (03/20/18 7:40 PM) Lymphocytes [20.0-40.0 %] 31.3 % (03/20/18 7:40 PM) Monocytes [2.0-12.0 %] 9.2 % (03/20/18 7:40 PM) Eosinophils [0.0-4.0 %] 1.2 % (03/20/18 7:40 PM) Basophils [0.0-1.0 %] 0.4 % (03/20/18 7:40 PM) Segs-Bands # [1.5-8.1 K/CMM] 3.6 K/CMM (03/20/18 7:40 PM) Lymphocytes # [1.0-5.5 K/CMM] 1.9 K/CMM (03/20/18 7:40 PM) Monocytes # [0.0-0.8 K/CMM] 0.6 K/CMM (03/20/18 7:40 PM) Eosinophils # [0.0-0.5 K/CMM] 0.1 K/CMM (03/20/18 7:40 PM) PT [12.0-14.7 seconds] 14.0 seconds (03/20/18 7:40 PM) INR [0.85-1.17] 1.08 (03/20/18 7:40 PM) D-Dimer <0.27 ug/mL FEU *NA* (03/20/18 7:40 PM) PTT [22.9-35.8 seconds] 31.6 seconds (03/20/18 7:40 PM) Immunizations No data available for this section Procedures No data available for this section Social History Social History Type Response Substance Abuse Use: Current. Type: Marijuana.1 Sexual Sexually active: Yes. Sexual orientation: Don't Know. 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 Alcohol Current, Type Beer.2 Smoking Status Never smoker; Ready to change: No; Concerns about tobacco use in household: No; Exposure to Tobacco Smoke None; Cigarette Smoking Last 365 Days No; Reg Smoking Cessation Counseling No entered on: 03/20/18 1Reports having used drug today around noon.2Reports having had 10 beers earlier today around noon. Assessment and Plan Extracted from: Title: History and Physical Author: Koffi Hurtado MD Date: 03/20/18 27-year-old male with history of substance abuse presenting with chest pain, anxiety and diaphoresis acute chest pain Cocaine abuse Marijuana use Alcoholabuse Plan Admit Telemetry monitoring patient was given aspirin Serial cardiac enzymes Use benzodiazepine as needed for anxiety andwithdrawal IV fluid hydration Consult cardiologyfor evaluation further recommendations
--- OUTSIDE RECORDS SUMMARY | 2018-08-19 18:43 | XMS REPORT | Summary of Care ---
:1990 Author Organization [facility] Address [address] [place] [address]- Encounter HQ Tracey_na(FIN) [id number] Date(s): 04/14/18 - 04/14/18 [facility] [id number] [place] [id number]- Encounter Diagnosis Acute tension headache (Discharge Diagnosis) - 04/14/18 Chest pain, atypical (Discharge Diagnosis) - 04/14/18 Discharge Disposition: Home or Self Care Attending Physician: Bala Tristan MD Vital Signs Most recent to oldest [Reference Range]: 1 2 Height 175.26 cm (04/14/18 6:58 PM) Temperature Oral [96.4-99.1 DegF] 99 DegF (04/14/18 6:58 PM) Blood Pressure [90-140/60-90 mmHg] 146/82 mmHg 135/80 mmHg *HI* (04/14/18 6:58 PM) (04/14/18 9:54 PM) Respiratory Rate [14-20 BRMIN] 18 BRMIN 20 BRMIN (04/14/18 9:54 PM) (04/14/18 6:58 PM) Peripheral Pulse Rate [60-100 bpm] 67 bpm 77 bpm (04/14/18 9:54 PM) (04/14/18 6:58 PM) Weight 104.545 kg (04/14/18 6:58 PM) Body Mass Index 34.04 m2 (04/14/18 6:58 PM) Problem List No data available for this section Allergies, Adverse Reactions, Alerts Substance Reaction Severity Status NKDA Active Medications acetaminophen 650 mg, 2 tab, Route: PO, Drug form: TAB, ONCE, Dosing Weight 104.545, kg, Priority: STAT, Start date: 04/14/18 21:06:00 CDT, Stop date: 04/14/18 21:06:00 CDT Notes: Do not exceed 4 gm/day. (Same as: Tylenol) Start Date: 04/14/18 Stop Date: 04/14/18 Status: CompletedFioricet 300 mg-50 mg-40 mg oral capsule 1 cap, PO, Q4H, PRN PRN Headache, Do not exceed 6 capsules in 24 hours, # 20 cap , 0 Refill(s) Start Date: 04/14/18 Stop Date: 04/16/18 Status: CompletedReglan 10 mg, 1 tab, Route: PO, Drug form: TAB, ONCE, Dosing Weight 104.545, kg, Priority: STAT, Start date: 04/14/18 21:06:00 CDT, Stop date: 04/14/18 21:06:00 CDT Notes: (Same as: Reglan) Take 30 min before meals Start Date: 04/14/18 Stop Date: 04/14/18 Status: CompletedSodium Chloride 0.9% (Bolus) IV 1,000 mL, 1000 ml/hr, Infuse Over: 1 hr, Route: IV, 1,000, Drug form: INJ, ONCE , Priority: STAT, Dosing Weight 104.545 kg, Start date: 04/14/18 19:24:00 CDT, Stop date: 04/14/18 19:24:00 CDT Start Date: 04/14/18 Stop Date: 04/14/18 Status: Completed Results ELECTROLYTES Most recent to oldest [Reference Range]: 1 Sodium Lvl [135-145 mEq/L] 139 mEq/L (04/14/18 7:41 PM) Potassium Lvl [3.5-5.1 mEq/L] 4.6 mEq/L (04/14/18 7:41 PM) Chloride Lvl [95-109 mEq/L] 107 mEq/L (04/14/18 7:41 PM) CO2 [24-32 mEq/L] 24 mEq/L (04/14/18 7:41 PM) AGAP [10.0-20.0 mEq/L] 12.6 mEq/L (04/14/18 7:41 PM) CHEM PANEL Most recent to oldest [Reference Range]: 1 Creatinine Lvl [0.50-1.40 mg/dL] 1.22 mg/dL (04/14/18 7:41 PM) eGFR 80 mL/min/1.73m2 1 *NA* (04/14/18 7:41 PM) BUN [7-22 mg/dL] 14 mg/dL (04/14/18 7:41 PM) B/C Ratio [6-25] 11 (04/14/18 7:41 PM) Glucose Lvl [70-99 mg/dL] 98 mg/dL (04/14/18 7:41 PM) Total Protein [6.4-8.4 g/dL] 8.1 g/dL (04/14/18 7:41 PM) Albumin Lvl [3.5-5.0 g/dL] 3.9 g/dL (04/14/18 7:41 PM) Globulin [2.7-4.2 g/dL] 4.2 g/dL (04/14/18 7:41 PM) A/G Ratio [0.7-1.6] 0.9 (04/14/18 7:41 PM) Calcium Lvl [8.5-10.5 mg/dL] 8.9 mg/dL (04/14/18 7:41 PM) ALT [0-65 unit/L] 44 unit/L (04/14/18 7:41 PM) AST [0-37 unit/L] 34 unit/L (04/14/18 7:41 PM) Alk Phos [39-136 unit/L] 110 unit/L (04/14/18 7:41 PM) Bili Total [0.2-1.3 mg/dL] 0.6 mg/dL (04/14/18 7:41 PM) Lipase Lvl [73-393 unit/L] 118 unit/L (04/14/18 7:41 PM) Lactic Acid Lvl [0.5-2.2 mMol/L] 1.1 mMol/L (04/14/18 7:47 PM) Procalcitonin Lvl [0.00-0.10 ng/mL] <0.05 ng/mL (04/14/18 7:47 PM) 1Result Comment: The eGFR is calculated [...] [Reference Range]: 1 Total CK [12-191 unit/L] 132 unit/L (04/14/18 7:41 PM) CK MB [0.5-3.6 ng/mL] <0.5 ng/mL (04/14/18 7:41 PM) CK MB Index [0.0-2.5] <0.4 (04/14/18 7:41 PM) Troponin-I [0.00-0.40 ng/mL] <0.02 ng/mL (04/14/18 7:41 PM) URINE AND STOOL Most recent to oldest [Reference Range]: 1 UA Turbidity [Clear] Clear (04/14/18 8:38 PM) UA Color [Yellow] Light Yellow *NA* (04/14/18 8:38 PM) UA pH [5.0-8.0] 5.0 (04/14/18 8:38 PM) UA Spec Grav [<=1.030] 1.017 (04/14/18 8:38 PM) UA Glucose [Negative mg/dL] Negative mg/dL *NA* (04/14/18 8:38 PM) UA Blood [Negative] Negative (04/14/18 8:38 PM) UA Ketones [Negative mg/dL] Negative mg/dL *NA* (04/14/18 8:38 PM) UA Protein [Negative mg/dL] Negative mg/dL (04/14/18 8:38 PM) UA Urobilinogen [0.1-1.0 mg/dL] <=1.0 mg/dL *NA* (04/14/18 8:38 PM) UA Bili [Negative] Negative *NA* (04/14/18 8:38 PM) UA Leuk Est [Negative] Negative (04/14/18 8:38 PM) UA Nitrite [Negative] Negative (04/14/18 8:38 PM) UA WBC [0-5 /HPF] 1 /HPF (04/14/18 8:38 PM) UA Sq Epi None Seen *NA* (04/14/18 8:38 PM) UA Mucus [None Seen /LPF] Few /LPF *NA* (04/14/18 8:38 PM) HEMATOLOGY Most recent to oldest [Reference Range]: 1 WBC [3.7-10.4 K/CMM] 7.6 K/CMM (04/14/18 7:41 PM) RBC [4.70-6.10 M/CMM] 5.17 M/CMM (04/14/18 7:41 PM) Hgb [14.0-18.0 g/dL] 15.9 g/dL (04/14/18 7:41 PM) Hct [42.0-54.0 %] 45.0 % (04/14/18 7:41 PM) MCV [80.0-94.0 fL] 87.1 fL (04/14/18 7:41 PM) MCH [27.0-31.0 pg] 30.8 pg (04/14/18 7:41 PM) MCHC [32.0-36.0 g/dL] 35.4 g/dL (04/14/18 7:41 PM) RDW [11.5-14.5 %] 12.5 % (04/14/18 7:41 PM) MPV [7.4-10.4 fL] 7.5 fL (04/14/18 7:41 PM) Platelet [133-450 K/CMM] 264 K/CMM (04/14/18 7:41 PM) Segs [45.0-75.0 %] 67.1 % (04/14/18 7:41 PM) Lymphocytes [20.0-40.0 %] 22.4 % (04/14/18 7:41 PM) Monocytes [2.0-12.0 %] 8.4 % (04/14/18 7:41 PM) Eosinophils [0.0-4.0 %] 1.4 % (04/14/18 7:41 PM) Basophils [0.0-1.0 %] 0.7 % (04/14/18 7:41 PM) Segs-Bands # [1.5-8.1 K/CMM] 5.1 K/CMM (04/14/18 7:41 PM) Lymphocytes # [1.0-5.5 K/CMM] 1.7 K/CMM (04/14/18 7:41 PM) Monocytes # [0.0-0.8 K/CMM] 0.6 K/CMM (04/14/18 7:41 PM) Eosinophils # [0.0-0.5 K/CMM] 0.1 K/CMM (04/14/18 7:41 PM) Basophils # [0.0-0.2 K/CMM] 0.1 K/CMM (04/14/18 7:41 PM) Immunizations No data available for this section Procedures No data available for this section Social History Social History Type Response Substance Abuse Use: Current. Type: Marijuana.1 Sexual Sexually active: Yes. Sexual orientation: Don't Know. 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 Alcohol Current, Type Beer.2 Smoking Status [...]
--- OUTSIDE RECORDS SUMMARY | 2018-08-19 18:44 | XMS REPORT | Summary of Care ---
:1990 Author Organization [facility] Address [address] [place] [address]- Encounter HQ Encntr_alias(FIN) [id number] Date(s): 05/05/18 - 05/05/18 [facility] [address] [place] [address]- Encounter Diagnosis Left facial numbness (Discharge Diagnosis) - 05/05/18 Acute headache (Discharge Diagnosis) - 05/05/18 Discharge Disposition: Home or Self Care Attending Physician: Shanita Davis DO Vital Signs Most recent to oldest [Reference Range]: 1 2 Height 177.8 cm (05/05/18 1:16 AM) Temperature Oral [96.4-99.1 DegF] 98.7 DegF (05/05/18 1:16 AM) Blood Pressure [90-140/60-90 mmHg] 138/85 mmHg 148/90 mmHg (05/05/18 2:34 AM) *HI* (05/05/18 1:16 AM) Respiratory Rate [14-20 BRMIN] 16 BRMIN 18 BRMIN (05/05/18 2:34 AM) (05/05/18 1:16 AM) Peripheral Pulse Rate [60-100 bpm] 68 bpm 65 bpm (05/05/18 2:34 AM) (05/05/18 1:16 AM) Weight 108.182 kg (05/05/18 1:16 AM) Body Mass Index 34.22 m2 (05/05/18 1:16 AM) Problem List No data available for this section Allergies, Adverse Reactions, Alerts Substance Reaction Severity Status NKDA Active Medications BD Normal Saline Flush 25 mL, Route: IV, Drug Form: INJ, PRN, PRN Line Flush, Start date: 05/05/18 2:18 :00 CDT, Duration: 30 day, Stop date: 06/04/18 2:17:00 CDT Notes: (Same as: BD Posiflush) Start Date: 05/05/18 Stop Date: 05/05/18 Status: DiscontinuedBD Normal Saline Flush 10 mL, Route: IV, Drug Form: INJ, PRN, PRN Line Flush, Start date: 05/05/18 2:17 :00 CDT, Duration: 30 day, Stop date: 06/04/18 2:16:00 CDT Notes: (Same as: BD Posiflush) Start Date: 05/05/18 Stop Date: 05/05/18 Status: DiscontinuedketOROLAC 30 mg, 1 mL, Route: IM, Drug form: INJ, ONCE, Dosing Weight 108.182, kg, Priority: STAT, Start date:05/05/18 2:15:00 CDT, Stop date: 05/05/18 2:15:00 CDT Notes: (Same as:Toradol) IV bolus must be given >15 seconds. Give IM administration slowly and deeply into the muscle.Not for use > 4 days MEDICATION WASTE Product Size: 30 mgProduct Wasted: ___ mg Start Date: 05/05/18 Stop Date: 05/05/18 Status: Completed Results No data available for this section Immunizations No data available for this section Procedures No data available for this section Social History Social History Type Response Substance Abuse Use: Current. Type: Marijuana.1 Sexual Sexually active: Yes. Sexual orientation: Don't Know. 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 Alcohol Current, Type Beer.2 Smoking Status Never smoker; Ready to change: No; Concerns about tobacco use in household: No; Exposure to Tobacco Smoke None; Cigarette Smoking Last 365 Days No; Reg Smoking Cessation Counseling No entered on: 05/05/18 1Reports having used drug today around noon.2Reports having had 10 beers earlier today around noon. Assessment and Plan No data available for this section
--- NOTE | 2018-08-19 20:05 | RAD REPORT ---
EXAM DESCRIPTION: RAD - Chest Single View - 08/19/2018 7:58 pm CLINICAL HISTORY: SOB Chest pain. COMPARISON: Chest Pa And Lat (2 Views) dated 08/17/2018 FINDINGS: Portable technique limits examination quality. The lungs are grossly clear. The heart is normal in size. No displaced fractures. IMPRESSION: No acute intrathoracic process suspected.
[2018-08-19 20:11] LABS: Absolute Lymphocytes (CBC) 1.1 K/uL (0.7-4.9); Absolute Monocytes 0.6 K/uL (0.1-1.3); Absolute Neutrophil 7.8 K/uL (1.8-8.0); Basophils % 0.3 % (0-1.3); Eosinophils % 0.2 % (0-4.4); Hematocrit 45.4 % (39.6-49.0); Lymphocytes % 11.8 % (15.3-44.8); MCH 31.5 pg (27.0-35.0); MPV 7.5 fL (7.6-11.3); Monocytes % 6.6 % (3.3-12.3); RBC Red Blood Cell Count 5.04 M/uL (4.33-5.43)
[2018-08-19 20:32] LABS: ALT/SGPT 33 U/L (12-78); AST/SGOT 13 U/L (15-37); Albumin 4.4 g/dL (3.4-5.0); Alkaline Phosphatase 114 U/L (45-117); BUN Blood Urea Nitrogen 10 mg/dL (7-18); Bicarbonate 29 mmol/L (21-32); Bilirubin Direct 0.2 mg/dL (0-0.2); Bilirubin Total 0.7 mg/dL (0.2-1.0); Glucose Level 101 mg/dL (74-106); Magnesium 2.2 mg/dL (1.8-2.4); NT PRO-BNP 6 pg/mL (<125); Potassium 3.8 mmol/L (3.5-5.1); Protein, Total 8.2 g/dL (6.4-8.2); Sodium Level 141 mmol/L (136-145); Troponin (Emerg Dept Use Only) < 0.02 ng/mL (0.0-0.045)
--- NOTE | 2018-08-19 21:18 | EDPHYS ---
Physician Documentation [facility] Name: Krishna Banks Age: 27 yrs Sex: Male : 1990 Arrival Date: 08/19/2018 Time: 18:39 Bed 14 Private MD: ED Physician Ryan Lovell HPI: 08/19 19:37 This 27 yrs old Male presents to ER via Ambulatory with complaints of jmm Breathing Difficulty, Numbness Of Hand. 19:37 The patient has shortness of breath at rest. Onset: The symptoms/episode began/occurred jmm acutely, yesterday. Duration: The symptoms are continuous. The patient's shortness of breath is aggravated by nothing, is alleviated by nothing. This is a 27 year old male with a history of HLP that presents to the ED with shortness of breath beginning today while at work. Patient also complains of generalized weakness. patient was recently discharged from the hospital due to dizziness and unilateral weakness. Patient states those symptoms are resolving. Patient denies chest pain. . Historical: - Allergies: 18:48 No Known Allergies; aj - Home Meds: 18:48 unknown cholesterol medication [Active]; aj - PMHx: 18:48 Hyperlipidemia; aj - PSHx: 18:48 None; aj - Immunization history:: Adult Immunizations up to date. - Social history:: Smoking status: Patient/guardian denies using tobacco. - Ebola Screening: : Patient negative for fever greater than or equal to 101.5 degrees Fahrenheit, and additional compatible Ebola Virus Disease symptoms Patient denies exposure to infectious person Patient denies travel to an Ebola-affected area in the 21 days before illness onset No symptoms or risks identified at this time. ROS: 19:37 Cardiovascular: Negative for chest pain, palpitations, and edema. jmm 19:37 Abdomen/GI: Negative for abdominal pain, nausea, vomiting, diarrhea, and constipation. 19:37 Constitutional: Positive for fatigue. 19:37 Respiratory: Positive for shortness of breath. 19:37 Neuro: Positive for weakness. 19:37 All other systems are negative. Exam: 19:37 Constitutional: This is a well developed, well nourished patient who is awake, alert, jmm and in no acute distress. Head/Face: atraumatic. Eyes: EOMI, no conjunctival erythema appreciated ENT: Moist Mucus Membranes Neck: Trachea midline, Supple Chest/axilla: Normal chest wall appearance and motion. 19:37 Cardiovascular: Rate: normal, Rhythm: regular, Pulses: no pulse deficits are appreciated. 19:37 Respiratory: the patient does not display signs of respiratory distress, Respirations: normal, Breath sounds: are clear throughout. 19:37 Abdomen/GI: Inspection: abdomen appears normal, Bowel sounds: normal, Palpation: abdomen is soft and non-tender, in all quadrants. 19:37 Skin: Appearance: Color: normal in color. 19:37 Neuro: Orientation: is normal, Mentation: is normal, Memory: is normal. 19:37 Psych: Behavior/mood is pleasant, cooperative. Vital Signs: 18:48 BP 137 / 77; Pulse 79; Resp 19; Temp 97.5; Pulse Ox 100% on R/A; Weight 104.33 kg; aj Height 5 ft. 6 in. (167.64 cm); 20:44 BP 140 / 90; Pulse 63; Resp 12; Pulse Ox 99% on R/A; Pain 0/10; ao 18:48 Body Mass Index 37.12 (104.33 kg, 167.64 cm) aj MDM: 19:36 Patient medically screened. lashell 20:51 Data reviewed: vital signs, nurses notes. lashell 21:15 Data reviewed: lab test result(s), EKG, radiologic studies, plain films. Counseling: I lashell had a detailed discussion with the patient and/or guardian regarding: the historical points, exam findings, and any diagnostic results supporting the discharge/admit diagnosis, the presence of at least one elevated blood pressure reading (>120/80) during this emergency department visit, lab results, radiology results, to return to the emergency department if symptoms worsen or persist or if there are any questions or concerns that arise at home. ED course: I reviewed the patient's recent inpatient stay due to headache with numbness. Echo, mri, normal. I do not suspect ACS at this time. Patient has no chest pain. D-dimer negative. vitals normal. I do not currently suspect PE. Patient is advised to follow up with PCP in 1 to 2 days for reevaluation. Patient is otherwise given strict return precautions. Patient understood and agrees with the plan of care. . 08/19 19:37 Order name: Basic Metabolic Panel; Complete Time: 20:47 [facility] 08/19 19:37 Order name: CBC with Diff; Complete Time: 20:22 [facility] 08/19 19:37 Order name: LFT's; Complete Time: 20:47 [facility] 08/19 19:37 Order name: Magnesium; Complete Time: 20:47 [facility] 08/19 19:37 Order name: NT PRO-BNP; Complete Time: 20:47 [facility] 08/19 19:37 Order name: PT-INR; Complete Time: 20:47 [facility] 08/19 19:37 Order name: Troponin (emerg Dept Use Only); Complete Time: 20:47 [facility] 08/19 19:37 Order name: XRAY Chest (1 view); Complete Time: 20:06 [facility] 08/19 19:37 Order name: EKG; Complete Time: 19:38 [facility] 08/19 19:37 Order name: Cardiac monitoring; Complete Time: 20:01 [facility] 08/19 19:37 Order name: EKG - Nurse/Tech; Complete Time: 21:19 [facility] 08/19 19:37 Order name: IV Saline Lock; Complete Time: 20:01 [facility] 08/19 19:37 Order name: D-Dimer; Complete Time: 20:47 [facility] 08/19 20:49 Order name: CPK; Complete Time: 21:09 [facility] 08/19 19:37 Order name: Labs collected and sent; Complete Time: 20:01 [facility] 08/19 19:37 Order name: O2 Per Protocol; Complete Time: 20:01 [facility] 08/19 19:37 Order name: O2 Sat Monitoring; Complete Time: 20:02 [facility] Administered Medications: No medications were administered Disposition: 08/20 13:22 Co-signature as Attending Physician, Ryan Lovell MD I agree with the assessment and kdr plan of care. Disposition: 08/19/18 21:18 Discharged to Home. Impression: Dyspnea, unspecified, Paresthesia of skin. - Condition is Stable. - Discharge Instructions: Paresthesia, Shortness of Breath. - Medication Reconciliation Form, Thank You Letter, Antibiotic Education, Prescription Opioid Use form. - Follow up: Private Physician; When: 2 - 3 days; Reason: Recheck today's complaints, Continuance of care, Re-evaluation by your physician. Signatures: Dispatcher [employer] Alda Paul RN Ryan Gongora MD MD kdr Mickail, Joel, PA PA [facility] Campbell aBnks RN RN ao Corrections: (The following items were deleted from the chart) 08/19 21:51 21:18 08/19/2018 21:18 Discharged to Home. Impression: Dyspnea, unspecified; ao Paresthesia of skin. Condition is Stable. Forms are Medication Reconciliation Form, Thank You Letter, Antibiotic Education, Prescription Opioid Use. Follow up: Private Physician; When: 2 - 3 days; Reason: Recheck today's complaints, Continuance of care, Re-evaluation by your physician. lashell
--- NOTE | 2018-08-19 21:18 | ER ---
Nurse's Notes [facility] Name: Krishna Banks Age: 27 yrs Sex: Male : 1990 Arrival Date: 08/19/2018 Time: 18:39 Bed 14 Private MD: Diagnosis: Dyspnea, unspecified;Paresthesia of skin Presentation: 08/19 18:45 Presenting complaint: Patient states: Patient reports numbness to bilateral hands and aj SOB that started today. Patient was admitted to this facility on 08/17 for headache and facial numbness, discharged yesterday. Reports feeling anxious. Transition of care: patient was not received from another setting of care. Onset of symptoms was August 19, 2018. Risk Assessment: Do you want to hurt yourself or someone else? Patient reports no desire to harm self or others. Initial Sepsis Screen: Does the patient meet any 2 criteria? No. Patient's initial sepsis screen is negative. Does the patient have a suspected source of infection? No. Patient's initial sepsis screen is negative. Care prior to arrival: None. 18:45 Method Of Arrival: Ambulatory aj 18:45 Acuity: BATSHEVA 3 aj Triage Assessment: 18:48 General: Appears in no apparent distress. comfortable, Behavior is calm, cooperative, aj appropriate for age. Pain: Denies pain. Neuro: Level of Consciousness is awake, alert, obeys commands, Oriented to person, place, time, situation, Appropriate for age. Respiratory: Reports shortness of breath Airway is patent Respiratory effort is even, unlabored, Respiratory pattern is regular, symmetrical, Onset: The symptoms/episode began/occurred suddenly, the patient has mild shortness of breath. Derm: Skin is intact, is healthy with good turgor, Skin is pink, warm \T\ dry. normal. Musculoskeletal: Reports numbness in right hand, left hand, right foot and left foot. Historical: - Allergies: 18:48 No Known Allergies; aj - Home Meds: 18:48 unknown cholesterol medication [Active]; aj - PMHx: 18:48 Hyperlipidemia; aj - PSHx: 18:48 None; aj - Immunization history:: Adult Immunizations up to date. - Social history:: Smoking status: Patient/guardian denies using tobacco. - Ebola Screening: : Patient negative for fever greater than or equal to 101.5 degrees Fahrenheit, and additional compatible Ebola Virus Disease symptoms Patient denies exposure to infectious person Patient denies travel to an Ebola-affected area in the 21 days before illness onset No symptoms or risks identified at this time. Screenin:39 Abuse screen: Denies threats or abuse. Denies injuries from another. Nutritional ao screening: No deficits noted. Tuberculosis screening: No symptoms or risk factors identified. Fall Risk None identified. Assessment: 19:30 General: Appears in no apparent distress. comfortable, Behavior is calm, cooperative, ao appropriate for age. Pain: Denies pain. Neuro: Level of Consciousness is awake, alert, obeys commands, Oriented to person, place, time, situation, Appropriate for age Moves all extremities. Full function Speech is normal, Facial symmetry appears normal. Cardiovascular: Heart tones S1 S2 Capillary refill < 3 seconds Rhythm is regular. Respiratory: Airway is patent Respiratory effort is labored, Respiratory pattern is Breath sounds are clear bilaterally. GI: Abdomen is non-distended. : No signs and/or symptoms were reported regarding the genitourinary system. EENT: No signs and/or symptoms were reported regarding the EENT system. Derm: Skin is intact, Skin is pink, warm \T\ dry. Reports tingling, and numbness in extremities. Musculoskeletal: No signs and/or symptoms reported regarding the musculoskeletal system. Circulation, motion, and sensation intact. Range of motion: intact in all extremities. 20:44 Reassessment: Patient appears in no apparent distress at this time. Patient and/or ao family updated on plan of care and expected duration. Pain level reassessed. Patient is alert, oriented x 3, equal unlabored respirations, skin warm/dry/pink. Patient under no distress. 21:51 Reassessment: DC instructions given to patient in [place]. Patient agree with the POC ao and to follow up with PCP. Vital Signs: 18:48 BP 137 / 77; Pulse 79; Resp 19; Temp 97.5; Pulse Ox 100% on R/A; Weight 104.33 kg; aj Height 5 ft. 6 in. (167.64 cm); 20:44 BP 140 / 90; Pulse 63; Resp 12; Pulse Ox 99% on R/A; Pain 0/10; ao 18:48 Body Mass Index 37.12 (104.33 kg, 167.64 cm) ED Course: 18:39 Patient arrived in ED. mr 18:47 Triage completed. aj 18:48 Arm band placed on left wrist. Patient placed in an exam room. aj 19:24 Ariel Bonilla PA is PHCP. [facility] 19:24 Ryan Lovell MD is Attending Physician. [facility] 19:30 Campbell Banks, RN is Primary Nurse. ao 19:39 Patient has correct armband on for positive identification. Pulse ox on. NIBP on. ao 19:58 XRAY Chest (1 view) In Process Unspecified. EDMS 20:00 Initial lab(s) drawn, by me, sent to lab. Inserted saline lock: 18 gauge in left cc antecubital area, using aseptic technique. Blood collected. 21:49 No provider procedures requiring assistance completed. IV discontinued, intact, ao bleeding controlled, No redness/swelling at site. Pressure dressing applied. Administered Medications: No medications were administered Outcome: 21:18 Discharge ordered by MD. [facility] 21:50 Discharged to home ambulatory. ao 21:50 Condition: stable 21:50 Discharge instructions given to patient, Instructed on discharge instructions, follow up and referral plans. Demonstrated understanding of instructions, follow-up care, medications. 21:51 Patient left the ED. ao Signatures: Dispatcher [employer] EDMS Alda Oh, FLORIDALMA RN Ariel Bonilla PA PA [facility] Katherine Posadas Chelsea Campbell Banks, RN RN ao Corrections: (The following items were deleted from the chart) 18:49 18:45 Presenting complaint: Patient states: Patient reports numbness to bilateral hands aj and SOB that started today. Patient reports severe headache yesterday aj 18:50 18:45 Acuity: BATSHEVA 4 [facility] 21:50 21:49 Patient did not have IV access during this emergency room visit. ao ao
[2018-08-19 22:07] VITALS: TEMP 97.5
[2018-08-19 22:08] VITALS: BP 140/90; O2SAT 99
--- NOTE | 2018-08-20 08:33 | EKG ---
Test Date: 2018-08-19 Test Time: 20:14:25 [employer]: SOFIA MEASUREMENT RESULTS: Intervals: Rate: 67 DC: 170 QRSD: 84 QT: 374 QTc: 395 [place]: P: 33 DC: 170 QRS: 62 T: 27 INTERPRETIVE STATEMENTS: Normal sinus rhythm Normal ECG Compared to ECG 08/18/2018 08:45:50 Sinus bradycardia no longer present Electronically Signed On 08-20-18 08:33:04 CDT by Dread Campbell
== END 2018-08-19 21:51 | disposition home or self-care (01) ==
LOC: ER 18:34
DX: R20.2 Paresthesia of skin (principal); E78.5 Hyperlipidemia, unspecified
CPT/HCPCS: 36415; 71045; 80048; 80076; 82550; 83735; 83880; 84484; 85025; 85379; 85610; 93005; 99284